=== PATIENT | female | born 1945 | race Caucasian/White ===

== ENCOUNTER → 2018-01-06 09:18 | Outpatient (CLI) | payer MEDICARE, SELFPAY ==
--- NOTE | 2018-01-06 09:21 | HPBI_ITS ---
MAMMOGRAPHY - BILATERAL SCREENING REASON FOR EXAM: Female, 72 years old. Routine annual screening examination. PERTINENT HISTORY: Non-contributory. TECHNIQUE: Digital bilateral breast sol (3D mammographic acquisition) in the CC and MLO projections. 2-D mediolateral oblique (MLO) and craniocaudad (CC) views of both breasts were obtained. CAD: Full Field Digital Mammography with Computer Added Detection was performed. COMPARISON: Comparison is made with prior study dated October 27, 2016 and September 24, 2015. FINDINGS: Breast Composition: There are scattered areas of fibroglandular density. There are no dominant masses or suspicious calcifications. Stable bilateral benign appearing axillary lymph nodes. No other significant abnormalities are identified. There has been no significant change since the prior study. HPBI/SCREENING MAMM (CAD), BILAT IMPRESSION: Stable bilateral screening mammogram. Yearly follow-up mammogram recommended. (A) ASSESSMENT CATEGORY: BIRADS Category 2: Benign. A letter regarding these results will be sent to the patient by the facility within 30 days. Approximately 10% of breast cancers are not detected by mammography. A normal mammogram should not delay biopsy of a clinically suspicious abnormality. [id number] Electronically Signed: Chuck Smyth MD at 13:31 EDT Tel [phone], Service support ,
== END ==
PROVIDERS: Family Provider Family Medicine; PCP Family Medicine; Visit Provider Obstetrics & Gynecology
DX: Z12.31 Encounter for screening mammogram for malignant neoplasm of breast (principal)
CPT/HCPCS: 77063; 77067

== ENCOUNTER → 2018-03-31 09:43 | Outpatient (CLI) | payer MEDICARE, SELFPAY ==
[2018-03-31 12:04] LABS: Absolute Lymphocyte Count 0.91 X10^3/ul (0.83-4.51); Absolute Neutrophil Count 5.5 X10^3/uL (2.0-7.7); Basophil# 0.01 X10^3/uL; Basophil% 0.1 % (0-1); Eosinophil# 0.01 X10^3/uL; Eosinophils% 0.1 % (0-5); Hemoglobin 13.4 g/dl (12.0-15.0); Lymphocyte # 0.91 X10^3/ul (4.0); Lymphocyte % 13.6 % (19-41); Mean Corp Hgb Conc 32.7 g/gl (32-36); Mean Corpuscular Hgb 29.2 pg (27.0-32.0); Mean Corpuscular Volume 89.3 fL (81-99); Mean Platelet Vol. 10.3 fl (6.2-12.0); Monocyte# 0.21 X10^3/uL; Monocyte% 3.1 % (0-10); Neutrophil # 5.54 X10^3/uL (2.7-7.7); Platelet Count 225 K/mm3 (150-450); RBC Distribution Width CV 13.4 % (11.6-14.6); RBC Distribution Width SD 43.4 fl (35.1-43.9); Red Blood Count 4.59 M/mm3 (4.2-5.4); White Blood Count 6.7 K/mm3 (4.4-11.0)
[2018-03-31 12:17] LABS: POSITIVE COUNT NO; POSITIVE DIFFERENTIAL NO; POSITIVE MORPHOLOGY NO
[2018-03-31 12:20] LABS: ALB/GLOB Ratio 1.2 RATIO (0.9-2.4); AST(SGOT) 15 U/L (15-37); Alanine Aminotransfer ALT/SGPT 40 U/L (13-56); Albumin, Serum 3.9 g/dL (3.2-5.0); Alkaline Phosphatase 75 U/L (45-117); Anion Gap 8 (5-15); BUN 15 mg/dL (7-18); BUN/Creat Ratio 21.5 RATIO (10-20); Calcium,Total 8.9 mg/dL (8.5-10.1); Chloride 107 mmol/L (98-107); Cholesterol 203 mg/dL (200); EST Glomerular Filtration Rate 87 mL/min (>60); Est Glom Filt Rate - Afr Amer 105 mL/min (>60); Globulin 3.3 g/dL (2.2-4.2); Glucose 120 mg/dL (74-106); High Density Lipoprotein 75 mg/dL; Potassium 4.1 mmol/L (3.5-5.1); Protein, Total 7.2 g/dL (6.4-8.2); Sodium Level 142 mmol/L (136-145); Triglycerides 130 mg/dL; Very Low Density Lipoprotein 26 mg/dL (5-40)
[2018-03-31 12:26] LABS: Microalbumin,Random Urine 11.8 mg/L (NO RANGE EST.); Microalbumin:Creatinine Ratio 8.5 mg/g CRE (<30 mg/g CRE)
== END ==
PROVIDERS: Family Provider Family Medicine; PCP Family Medicine; Visit Provider Family Medicine
DX: I10 Essential (primary) hypertension (principal); R60.0 Localized edema; E78.5 Hyperlipidemia, unspecified
CPT/HCPCS: 36415; 80053; 80061; 82043; 82570; 85025

== ENCOUNTER 2018-07-31 18:42 | Inpatient (IN) | payer MEDICARE, SELFPAY ==
[2018-07-31] VITALS (7 sets, daily range): BP systolic 118–204; BP diastolic 60–104; PULSE 65–71; RESP 16–27; TEMP 36.5–37.2; O2SAT 92–100; BMI 27.2; BMI 26.9; BMI 27.0
--- NOTE | 2018-07-31 19:11 | EKG12_ITS ---
Test Reason : REPEAT Blood Pressure : / mmHG Vent. Rate : 071 BPM Atrial Rate : 071 BPM P-R Int : 150 ms QRS Dur : 110 ms QT Int : 422 ms P-R-T Axes : 014 -11 118 degrees QTc Int : 458 ms Sinus rhythm with occasional Premature ventricular complexes Left ventricular hypertrophy with repolarization abnormality Abnormal ECG Confirmed by SHYNAN EVANS, RAFAEL ([id number]), photo editor KOFFI MO ([id number]) on 08/02/2018 3:28:13 PM Referred By: ANJEL Confirmed By:RAFAEL BOOTHE MD
--- NOTE | 2018-07-31 19:12 | CT_ITS ---
STUDY: CT ABDOMEN AND PELVIS WITHOUT CONTRAST REASON FOR EXAM: Female, 73 years old. Abdominal and pelvic pain. RADIATION DOSAGE (If Supplied By Facility): CTDIvol = ( 6.85 ) mGy, DLP = ( 318.31 ) mGycm TECHNIQUE: Transaxial images were obtained from the dome of the diaphragm to the symphysis pubis without oral contrast, and without intravenous contrast. Sagittal and coronal images were reconstructed. Individualized dose optimization techniques were used for this CT. COMPARISON: None. FINDINGS: The visualized lung bases are unremarkable. The visualized portions of the heart are within normal limits. Please note the lack of intravenous contrast limits evaluation of solid visceral organs. Normal liver. Normal gallbladder and extrahepatic biliary system. Normal spleen. Normal pancreas. Normal bilateral adrenal glands. Normal right kidney. Normal left kidney. There is a small hiatal hernia. There is a dilated loop of distal ileum associated with feculent material within the lumen. There is a diverticulum arising from the sigmoid colon. The appendix is visualized and appears normal. There is diffuse atherosclerotic calcification of the abdominal aorta, without a demonstrated aneurysm. Normal inferior vena cava. Normal retroperitoneum. Normal urinary bladder. Normal abdominal wall. There are diffuse degenerative changes of the visualized lumbar spine. There is fusion of the L4 and L5 vertebral bodies. CT/Abdomen/Pelvis without Cont IMPRESSION: Small bowel obstruction involving the distal ileum. Atherosclerosis. Small hiatal hernia. Electronically Signed: Renetta White MD at 20:08 EDT Tel , Service support ,
--- NOTE | 2018-07-31 19:18 | ED.RN ---
NO OLD EKGS IN MUSE
[2018-07-31] MEDS: proMETHazine 25 MG/ML Syringe 12.5 MG IV (19:29)
[2018-07-31] MEDS: 0.9% Normal Saline 1,000 ML 150 ML IV (19:29)
[2018-07-31 19:38] LABS: Absolute Lymphocyte Count 1.47 X10^3/ul (0.83-4.51); Basophil# 0.02 X10^3/uL; Basophil% 0.2 % (0-1); Eosinophil# 0.05 X10^3/uL; Eosinophils% 0.5 % (0-5); Hematocrit 44.5 % (37-47); Hemoglobin 15.3 g/dl (12.0-15.0); Lymphocyte # 1.47 X10^3/ul (4.0); Lymphocyte % 13.4 % (19-41); Mean Corp Hgb Conc 34.4 g/gl (32-36); Mean Corpuscular Hgb 30.5 pg (27.0-32.0); Mean Corpuscular Volume 88.8 fL (81-99); Mean Platelet Vol. 9.9 fl (6.2-12.0); Monocyte# 0.37 X10^3/uL; Monocyte% 3.4 % (0-10); Neutrophil # 9.03 X10^3/uL (2.7-7.7); Neutrophil % 82.3 % (47-70); POSITIVE COUNT NO; POSITIVE DIFFERENTIAL NO; POSITIVE MORPHOLOGY NO; Platelet Count 222 K/mm3 (150-450); RBC Distribution Width CV 12.6 % (11.6-14.6); RBC Distribution Width SD 39.9 fl (35.1-43.9); Red Blood Count 5.01 M/mm3 (4.2-5.4)
[2018-07-31 19:49] LABS: ALB/GLOB Ratio 1.2 RATIO (0.9-2.4); AST(SGOT) 20 U/L (15-37); Alanine Aminotransfer ALT/SGPT 44 U/L (13-56); Albumin, Serum 4.2 g/dL (3.2-5.0); Alkaline Phosphatase 83 U/L (45-117); Anion Gap 11 (5-15); BUN 15 mg/dL (7-18); BUN/Creat Ratio 15.6 RATIO (10-20); Calcium,Total 9.6 mg/dL (8.5-10.1); Chloride 105 mmol/L (98-107); Creatinine, Serum 0.96 mg/dL (0.55-1.02); EST Glomerular Filtration Rate 60 mL/min (>60); Est Glom Filt Rate - Afr Amer 73 mL/min (>60); Estimated Creatinine Clearance 48.95 ml/min; Globulin 3.4 g/dL (2.2-4.2); Glucose 136 mg/dL (74-106); Lipase 124 U/L (73-393); Protein, Total 7.6 g/dL (6.4-8.2); Sodium Level 138 mmol/L (136-145)
--- NOTE | 2018-07-31 19:50 | EKG12_ITS ---
Test Reason : NAUSEA Blood Pressure : / mmHG Vent. Rate : 062 BPM Atrial Rate : 062 BPM P-R Int : 148 ms QRS Dur : 100 ms QT Int : 440 ms P-R-T Axes : 019 000 125 degrees QTc Int : 446 ms Normal sinus rhythm Left ventricular hypertrophy with repolarization abnormality Consider right ventricular involvement in acute inferior infarct Abnormal ECG Confirmed by SHYANN EVANS, RAFAEL ([id number]), newspaper editor managing KOFFI MO ([id number]) on 08/02/2018 3:28:43 PM Referred By: ANJEL Confirmed By:RAFAEL BOOTHE MD
[2018-07-31 20:02] LABS: Lactic Acid 4.3 mmol/L (0.4-2.0)
--- NOTE | 2018-07-31 20:27 | ED.VISSUMM ---
- ER Visit Summary Date of Service: 07/31/18 Chief Complaint: [Abdominal pain, vomiting] History of Present Illness: The patient is a 73 F [presents the emergency department complaint of not feeling well since around 4 PM today. Patient states that she started having nondescript central abdominal pain initially and felt like she would feel better if she lay down with a heating pad. Patient started to have dry heaves. Patient's not had a fever. She denies urinary symptoms. Patient is never had pain like this before. She denies any diarrhea although she has had 3 bowel movements today.] Physical Examination: [HEENT-PERRLA, EOMI. Cranial nerves II through XII grossly intact. TMs clear. Mucous membranes moist. No adenopathy. Cardiovascular-regular rate and rhythm without murmur or ectopy Lungs-clear to auscultation, chest wall stable without crepitus or subcu emphysema Abdomen-normoactive bowel sounds, soft. Patient does have some mild suprapubic and periumbilical pain on palpation. There is no rebound, rigidity, or perineal signs. Extremities-intact ?4, normal range of motion, normal pulses, atraumatic] Test Results: [CBC with differential obtained showed a white count 11.0, hemoglobin 15, hematocrit 14.5, platelets 222. Chemistries unremarkable. All LFTs were normal. Lipase was normal. Troponin was less than 0.015. Lactate was elevated 4.3. CT scan of the abdomen pelvis without contrast showed a small bowel obstruction at the distal ileum.] Emergency Department Course and Treatment: [Patient initially given a liter normal same fluid bolus followed by second liter normal saline fluid bolus. Patient will have an NG tube placed. I discussed case with general surgeon on-call Dr. Janneth Mancera who asked that we admit patient to medicine with her to consult.] Treatment Plan: [Admit] Disposition: [Admit] Impression: [Small bowel obstruction] This note was generated with [employer] dictation software. It may contain incorrect words, spelling, and punctuation that were not noted in review of the chart prior to signing ED Disposition - Plan for ED Patient: Chief Complaint: Nausea/Vomiting Referrals: Bertin Sanchez DO [Primary Care Provider] -
--- NOTE | 2018-07-31 20:32 | ED.DCSUM_ITS ---
- ER Visit Summary Date of Service: 07/31/18 Chief Complaint: [Abdominal pain, vomiting] History of Present Illness: The patient is a 73 F [presents the emergency department complaint of not feeling well since around 4 PM today. Patient states that she started having nondescript central abdominal pain initially and felt like she would feel better if she lay down with a heating pad. Patient started to have dry heaves. Patient's not had a fever. She denies urinary symptoms. Patient is never had pain like this before. She denies any diarrhea although she has had 3 bowel movements today.] Physical Examination: [HEENT-PERRLA, EOMI. Cranial nerves II through XII grossly intact. TMs clear. Mucous membranes moist. No adenopathy. Cardiovascular-regular rate and rhythm without murmur or ectopy Lungs-clear to auscultation, chest wall stable without crepitus or subcu emphys edy Abdomen-normoactive bowel sounds, soft. Patient does have some mild suprapubic and periumbilical pain on palpation. There is no rebound, rigidity, or perineal signs. Extremities-intact ?4, normal range of motion, normal pulses, atraumatic] Test Results: [CBC with differential obtained showed a white count 11.0, hemoglobin 15, hematocrit 14.5, platelets 222. Chemistries unremarkable. All LFTs were normal. Lipase was normal. Troponin was less than 0.015. Lactate was elevated 4.3. CT scan of the abdomen pelvis without contrast showed a small bowel obstruction at the distal ileum.] Emergency Department Course and Treatment: [Patient initially given a liter normal same fluid bolus followed by second liter normal saline fluid bolus. Patient will have an NG tube placed. I discussed case with general surgeon on- call Dr. Janneth Mancera who asked that we admit patient to medicine with her to consult.] Treatment Plan: [Admit] Disposition: [Admit] Impression: [Small bowel obstruction] This note was generated with [employer] dictation software. It may contain incorrect words, spelling, and punctuation that were not noted in review of the chart prior to signing ED Disposition - Plan for ED Patient: Chief Complaint: Nausea/Vomiting Referrals: Bertin Sanchez DO [Primary Care Provider] -
[2018-07-31 20:39] LABS: Mucous, Urine 0 SEEN /hpf (<or=2+); Squamous Epithelial Cells - UA 0 SEEN /hpf (5-10)
--- NOTE | 2018-07-31 20:39 | HP.PCM_ITS ---
History of Present Illness The patient is a 73 year old F [] Past Medical History Allergies Penicillins Allergy (Verified 07/31/18 18:43) Rash Home Medications: Ambulatory Orders Medication Instructions Recorded Lovastatin [Mevacor] 40 mg PO DAILY 05/12/14 [place]-3 Fatty Acids [Fish Oil] 300 mg PO DAILY 05/12/14 Omeprazole [Prilosec] 40 mg PO DAILY 05/12/14 Ubidecarenone [Co Q-10] 100 mg PO 05/12/14 Vitamin E 400 units PO DAILY 05/12/14 Smoking Status: Never smoker - Physical Exam Vital Signs Temp Pulse Resp BP Pulse Ox 97.7 F L 65 19 H 118/104 H 95 07/31/18 18:43 07/31/18 19:52 07/31/18 19:52 07/31/18 19:52 07/31/18 19:52 Oxygen Delivery Method Room Air Weight: 135 lb Body Mass Index (BMI) 27.2 Laboratory Tests Past 24 Hrs 07/31/18 07/31/18 07/31/18 18:55 18:55 18:55 WBC 11.0 RBC 5.01 Hgb 15.3 H Hct 44.5 MCV 88.8 MCH 30.5 MCHC 34.4 RDW 12.6 RDW Differential 39.9 Plt Count 222 MPV 9.9 Immature Gran % (Auto) 0.200 Neut % (Auto) 82.3 H Lymph % (Auto) 13.4 L [place] % (Auto) 3.4 Eos % (Auto) 0.5 Baso % (Auto) 0.2 Absolute Neuts (auto) 9.0 H Absolute Lymphs (auto) 1.47 Total Counted Not Reportable Sodium 138 Potassium 4.0 Chloride 105 Carbon Dioxide 22.0 Anion Gap 11 BUN 15 Creatinine 0.96 Estim Creat Clear Calc 48.95 Est GFR (MDRD) Af Amer 73 Est GFR (MDRD) Non-Af 60 BUN/Creatinine Ratio 15.6 Glucose 136 H Lactic Acid 4.3 H* Calcium 9.6 Total Bilirubin 0.70 AST 20 ALT 44 Alkaline Phosphatase 83 Troponin I < 0.015 Total Protein 7.6 Albumin 4.2 Globulin 3.4 Albumin/Globulin Ratio 1.2 Lipase 124 Urine Color Urine Clarity Urine pH Ur Specific [place] Urine Protein Urine Glucose (UA) Urine Ketones Urine Occult Blood Urine Nitrite Urine Bilirubin Urine Urobilinogen Ur Leukocyte Esterase Urine RBC Urine WBC Ur Squamous Epith Cells Urine Bacteria Urine Mucus 07/31/18 20:27 WBC RBC Hgb Hct MCV MCH MCHC RDW RDW Differential Plt Count MPV Immature Gran % (Auto) Neut % (Auto) Lymph % (Auto) [place] % (Auto) Eos % (Auto) Baso % (Auto) Absolute Neuts (auto) Absolute Lymphs (auto) Total Counted Sodium Potassium Chloride Carbon Dioxide Anion Gap BUN Creatinine Estim Creat Clear Calc Est GFR (MDRD) Af Amer Est GFR (MDRD) Non-Af BUN/Creatinine Ratio Glucose Lactic Acid Calcium Total Bilirubin AST ALT Alkaline Phosphatase Troponin I Total Protein Albumin Globulin Albumin/Globulin Ratio Lipase Urine Color Pending Urine Clarity Pending Urine pH Pending Ur Specific [place] Pending Urine Protein Pending Urine Glucose (UA) Pending Urine Ketones Pending Urine Occult Blood Pending Urine Nitrite Pending Urine Bilirubin Pending Urine Urobilinogen Pending Ur Leukocyte Esterase Pending Urine RBC Pending Urine WBC Pending Ur Squamous Epith Cells Pending Urine Bacteria Pending Urine Mucus Pending
[2018-07-31 20:40] LABS: Color, Urine Yellow (Yellow); Glucose, Dipstick Normal (Normal); Ketone-Dipstick 50 mg/dl (Negative); Leukocyte Esterase-Dipstick 500 /ul (Negative); Nitrite-Dipstick Positive (Negative); Occult Blood-Urine 25 /ul (Negative); Protein-Dipstick 30 mg/dl (Negative); Specific Gravity, Urine 1.015 (1.002-1.030); Urine Bilirubin Dipstick Negative (Negative); Urine Clarity Cloudy (Clear); Urine Urobilinogen Normal (Normal)
[2018-07-31 20:46] LABS: Bacteria 4+ /hpf (None Seen)
[2018-07-31 20:47] LABS: Red Blood Cells-Urine 0-5 SEEN /hpf (0-5); White Blood Cells >100 SEEN /hpf (0-5)
--- NOTE | 2018-07-31 20:56 | PCM.CONS.GEN ---
Problem List (1) Abdominal cramping Status: Acute (2) Nausea Status: Acute Reason for Consult Date of Consultation: 07/31/18 Reason for Consultation: blood pressure management History of Present Illness: The patient is a 73 year old F with past medical history of hypertension and hyperlipidemia. She was admitted through the ED on 07/31/2018 with complaint of abdominal cramping and nausea started earlier today. Symptoms progressively worsened and was only relieved mildly by a heat patch that she applied to her abdomen. She had a bowel movement prior to symptoms starting, but has not a bowel movement or passed gas since. She came into the ED and CT scan showed small bowel obstruction. She was admitted by general surgery for management for small bowel obstruction hospitalist service was consulted for medical management of hypertension. [] Past Medical History Allergies Penicillins Allergy (Verified 07/31/18 18:43) Rash Home Medications: Ambulatory Orders Medication Instructions Recorded Lovastatin [Mevacor] 40 mg PO DAILY 05/12/14 [place]-3 Fatty Acids [Fish Oil] 300 mg PO DAILY 05/12/14 Omeprazole [Prilosec] 40 mg PO DAILY 05/12/14 Ubidecarenone [Co Q-10] 100 mg PO 05/12/14 Vitamin E 400 units PO DAILY 05/12/14 Surgical History: - - INOCENTE and BSO Psychiatric History: No pertinent psych hx Lives: With Family Smoking Status: Never smoker Tobacco Use: Non-smoker Alcohol: Occasional Drugs: None - *Family History Paternal History Items: Cancer Maternal History Items: No pertinent history Review of Systems Constitutional: Denies: Chills, Fever, Malaise, Weakness, Weight Change HEENT: Denies: Head Aches, Sinus Congestion, Sinus Drainage Cardiovascular: Denies: Chest Pain, Edema, Heaviness, Light Headedness, Palpitations Respiratory: Denies: Cough, Shortness of breath at rest, Sputum production Gastrointestinal: Reports: Abdominal Pain, Nausea. Denies: Constipation, Diarrhea, Dyspepsia, Vomiting Genitourinary: Denies: Dysuria Musculoskeletal: Denies: Joint Pain, Joint Tenderness Skin: Denies: Rash, Wounds Neurological: Denies: Numbness, Tingling, Focal weakness Psychiatric: Denies: Anxiety, Depression, Homicidal Ideations, Suicidal Ideations Hematologic/ Lymphatic: Denies: Easy Bruising, Easy Bleeding Patient Problems: Active and Suspected Problems Abdominal cramping (Acute) Nausea (Acute) - Physical Exam General: Alert, Oriented x3, Cooperative, No apparent distress HEENT: Atraumatic, PERRLA, EOMI, Normocephalic Oral: Moist Mucosa Neck: Supple, No JVD, Negative Carotid Bruits Lungs: Clear to auscultation, Normal air movement, No rhonchi, No wheeze, No rales Cardiovascular: Regular rate, Regular Rhythm, Normal S1, Normal S2, No murmurs Abdomen: Bowel Sounds Present, Soft, Non Tender, Non-Distended, No Hepato-splenomegaly Extremities: No clubbing, No cyanosis, No edema, Capillary Refill Less than 3 Seconds Skin: No rashes, No breakdown Musculoskeletal: No Tenderness to Palpation of Joints or Extremities Neurological: Cranial nerves II-XII grossly intact, Neuro grossly intact, Motor Exam 5/5 strength throughout Psych/Mental Status: Normal Affect, Appropriate, Alert and oriented to time, place, person, mood and affect Vital Signs Temp Pulse Resp BP Pulse Ox 97.7 F L 65 19 H 118/104 H 95 07/31/18 18:43 07/31/18 19:52 07/31/18 19:52 07/31/18 19:52 07/31/18 19:52 Oxygen Delivery Method Room Air Weight: 135 lb Body Mass Index (BMI) 27.2 Laboratory Tests Past 24 Hrs 07/31/18 07/31/18 07/31/18 18:55 18:55 18:55 WBC 11.0 RBC 5.01 Hgb 15.3 H Hct 44.5 MCV 88.8 MCH 30.5 MCHC 34.4 RDW 12.6 RDW Differential 39.9 Plt Count 222 MPV 9.9 Immature Gran % (Auto) 0.200 Neut % (Auto) 82.3 H Lymph % (Auto) 13.4 L [place] % (Auto) 3.4 Eos % (Auto) 0.5 Baso % (Auto) 0.2 Absolute Neuts (auto) 9.0 H Absolute Lymphs (auto) 1.47 Total Counted Not Reportable Sodium 138 Potassium 4.0 Chloride 105 Carbon Dioxide 22.0 Anion Gap 11 BUN 15 Creatinine 0.96 Estim Creat Clear Calc 48.95 Est GFR (MDRD) Af Amer 73 Est GFR (MDRD) Non-Af 60 BUN/Creatinine Ratio 15.6 Glucose 136 H Lactic Acid 4.3 H* Calcium 9.6 Total Bilirubin 0.70 AST 20 ALT 44 Alkaline Phosphatase 83 Troponin I < 0.015 Total Protein 7.6 Albumin 4.2 Globulin 3.4 Albumin/Globulin Ratio 1.2 Lipase 124 Urine Color Urine Clarity Urine pH Ur Specific [place] Urine Protein Urine Glucose (UA) Urine Ketones Urine Occult Blood Urine Nitrite Urine Bilirubin Urine Urobilinogen Ur Leukocyte Esterase Urine RBC Urine WBC Ur Squamous Epith Cells Urine Bacteria Urine Mucus 07/31/18 20:27 WBC RBC Hgb Hct MCV MCH MCHC RDW RDW Differential Plt Count MPV Immature Gran % (Auto) Neut % (Auto) Lymph % (Auto) [place] % (Auto) Eos % (Auto) Baso % (Auto) Absolute Neuts (auto) Absolute Lymphs (auto) Total Counted Sodium Potassium Chloride Carbon Dioxide Anion Gap BUN Creatinine Estim Creat Clear Calc Est GFR (MDRD) Af Amer Est GFR (MDRD) Non-Af BUN/Creatinine Ratio Glucose Lactic Acid Calcium Total Bilirubin AST ALT Alkaline Phosphatase Troponin I Total Protein Albumin Globulin Albumin/Globulin Ratio Lipase Urine Color Yellow Urine Clarity Cloudy Urine pH 8.0 Ur Specific [place] 1.015 Urine Protein 30 H Urine Glucose (UA) Normal Urine Ketones 50 H Urine Occult Blood 25 H Urine Nitrite Positive H Urine Bilirubin Negative Urine Urobilinogen Normal Ur Leukocyte Esterase 500 H Urine RBC 0-5 SEEN Urine WBC >100 SEEN Ur Squamous Epith Cells 0 SEEN Urine Bacteria 4+ Urine Mucus 0 SEEN Diagnostic Data Abdomen/Pelvis CT 07/31/18 19:12 IMPRESSION: Small bowel obstruction involving the distal ileum. Atherosclerosis. Small hiatal hernia. Electronically Signed: Renetta White MD at 20:08 EDT Tel , Service support , Assessment/Plan All Active Problems Abdominal cramping (Acute) Nausea (Acute) 73-year-old female presenting with 1 day history of abdominal cramping and nausea 1. Small bowel obstruction CT abeomen showed terminal ileum obstruction has not passed gas or had a bowel movement since this afternoon management as per general surgery maintain NPO, give IVF, and pass NG tube 2. Lactic acidosis, likely due to small bowel obstruction lactic acid elevated at 4.3 will repeat after IVF administration 3. Hypertension: not on any meds. BP has remained elevated, in the 150s-180s systolic. start amlodipine 10mg daily. IV hydralazine 10mg q6prn for BP >160/90 4. Asymptomatic bacteriuria has no urinary symptoms; UA positive for UTI, with 4+ bacteria however, patient is asymptomatic, so will defer treatment. urine culture ordered 5. Hyperlipidemia: on lovastatin 6. GERD: on prilosec DVT prophylaxis: heparin GI prophylaxis: PPI Code status: full code Code Visit Inpatient E&M: 18858 Subs Hosp L3
--- NOTE | 2018-07-31 21:01 | CON.PCM_ITS ---
Problem List (1) Abdominal cramping Status: Acute (2) Nausea Status: Acute Reason for Consult Date of Consultation: 07/31/18 Reason for Consultation: blood pressure management History of Present Illness: The patient is a 73 year old F with past medical history of hypertension and hyperlipidemia. She was admitted through the ED on 07/31/2018 with complaint of abdominal cramping and nausea started earlier today. Symptoms progressively worsened and was only relieved mildly by a heat patch that she applied to her abdomen. She had a bowel movement prior to symptoms starting, but has not a bowel movement or passed gas since. She came into the ED and CT scan showed small bowel obstruction. She was admitted by general surgery for management for small bowel obstruction hospitalist service was consulted for medical management of hypertension. [] Past Medical History Allergies Penicillins Allergy (Verified 07/31/18 18:43) Rash Home Medications: Ambulatory Orders Medication Instructions Recorded Lovastatin [Mevacor] 40 mg PO DAILY 05/12/14 [place]-3 Fatty Acids [Fish Oil] 300 mg PO DAILY 05/12/14 Omeprazole [Prilosec] 40 mg PO DAILY 05/12/14 Ubidecarenone [Co Q-10] 100 mg PO 05/12/14 Vitamin E 400 units PO DAILY 05/12/14 Surgical History: - - INOCENTE and BSO Psychiatric History: No pertinent psych hx Lives: With Family Smoking Status: Never smoker Tobacco Use: Non-smoker Alcohol: Occasional Drugs: None - *Family History Paternal History Items: Cancer Maternal History Items: No pertinent history Review of Systems Constitutional: Denies: Chills, Fever, Malaise, Weakness, Weight Change HEENT: Denies: Head Aches, Sinus Congestion, Sinus Drainage Cardiovascular: Denies: Chest Pain, Edema, Heaviness, Light Headedness, Pa lpitations Respiratory: Denies: Cough, Shortness of breath at rest, Sputum production Gastrointestinal: Reports: Abdominal Pain, Nausea. Denies: Constipation, Diarrhea, Dyspepsia, Vomiting Genitourinary: Denies: Dysuria Musculoskeletal: Denies: Joint Pain, Joint Tenderness Skin: Denies: Rash, Wounds Neurological: Denies: Numbness, Tingling, Focal weakness Psychiatric: Denies: Anxiety, Depression, Homicidal Ideations, Suicidal Ideations Hematologic/ Lymphatic: Denies: Easy Bruising, Easy Bleeding Patient Problems: Active and Suspected Problems Abdominal cramping (Acute) Nausea (Acute) - Physical Exam General: Alert, Oriented x3, Cooperative, No apparent distress HEENT: Atraumatic, PERRLA, EOMI, Normocephalic Oral: Moist Mucosa Neck: Supple, No JVD, Negative Carotid Bruits Lungs: Clear to auscultation, Normal air movement, No rhonchi, No wheeze, No rales Cardiovascular: Regular rate, Regular Rhythm, Normal S1, Normal S2, No murmurs Abdomen: Bowel Sounds Present, Soft, Non Tender, Non-Distended, No Hepato- splenomegaly Extremities: No clubbing, No cyanosis, No edema, Capillary Refill Less than 3 Seconds Skin: No rashes, No breakdown Musculoskeletal: No Tenderness to Palpation of Joints or Extremities Neurological: Cranial nerves II-XII grossly intact, Neuro grossly intact, Motor Exam 5/5 strength throughout Psych/Mental Status: Normal Affect, Appropriate, Alert and oriented to time, place, person, mood and affect Vital Signs Temp Pulse Resp BP Pulse Ox 97.7 F L 65 19 H 118/104 H 95 07/31/18 18:43 07/31/18 19:52 07/31/18 19:52 07/31/18 19:52 07/31/18 19:52 Oxygen Delivery Method Room Air Weight: 135 lb Body Mass Index (BMI) 27.2 Laboratory Tests Past 24 Hrs 07/31/18 07/31/18 07/31/18 18:55 18:55 18:55 WBC 11.0 RBC 5.01 Hgb 15.3 H Hct 44.5 MCV 88.8 MCH 30.5 MCHC 34.4 RDW 12.6 RDW Differential 39.9 Plt Count 222 MPV 9.9 Immature Gran % (Auto) 0.200 Neut % (Auto) 82.3 H Lymph % (Auto) 13.4 L Lyon % (Auto) 3.4 Eos % (Auto) 0.5 Baso % (Auto) 0.2 Absolute Neuts (auto) 9.0 H Absolute Lymphs (auto) 1.47 Total Counted Not Reportable Sodium 138 Potassium 4.0 Chloride 105 Carbon Dioxide 22.0 Anion Gap 11 BUN 15 Creatinine 0.96 Estim Creat Clear Calc 48.95 Est GFR (MDRD) Af Amer 73 Est GFR (MDRD) Non-Af 60 BUN/Creatinine Ratio 15.6 Glucose 136 H Lactic Acid 4.3 H* Calcium 9.6 Total Bilirubin 0.70 AST 20 ALT 44 Alkaline Phosphatase 83 Troponin I < 0.015 Total Protein 7.6 Albumin 4.2 Globulin 3.4 Albumin/Globulin Ratio 1.2 Lipase 124 Urine Color Urine Clarity Urine pH Ur Specific [place] Urine Protein Urine Glucose (UA) Urine Ketones Urine Occult Blood Urine Nitrite Urine Bilirubin Urine Urobilinogen Ur Leukocyte Esterase Urine RBC Urine WBC Ur Squamous Epith Cells Urine Bacteria Urine Mucus 07/31/18 20:27 WBC RBC Hgb Hct MCV MCH MCHC RDW RDW Differential Plt Count MPV Immature Gran % (Auto) Neut % (Auto) Lymph % (Auto) [place] % (Auto) Eos % (Auto) Baso % (Auto) Absolute Neuts (auto) Absolute Lymphs (auto) Total Counted Sodium Potassium Chloride Carbon Dioxide Anion Gap BUN Creatinine Estim Creat Clear Calc Est GFR (MDRD) Af Amer Est GFR (MDRD) Non-Af BUN/Creatinine Ratio Glucose Lactic Acid Calcium Total Bilirubin AST ALT Alkaline Phosphatase Troponin I Total Protein Albumin Globulin Albumin/Globulin Ratio Lipase Urine Color Yellow Urine Clarity Cloudy Urine pH 8.0 Ur Specific [place] 1.015 Urine Protein 30 H Urine Glucose (UA) Normal Urine Ketones 50 H Urine Occult Blood 25 H Urine Nitrite Positive H Urine Bilirubin Negative Urine Urobilinogen Normal Ur Leukocyte Esterase 500 H Urine RBC 0-5 SEEN Urine WBC >100 SEEN Ur Squamous Epith Cells 0 SEEN Urine Bacteria 4+ Urine Mucus 0 SEEN Diagnostic Data Abdomen/Pelvis CT 07/31/18 19:12 IMPRESSION: Small bowel obstruction involving the distal ileum. Atherosclerosis. Small hiatal hernia. Electronically Signed: Renetta White MD at 20:08 EDT Tel , Service support , Assessment/Plan All Active Problems Abdominal cramping (Acute) Nausea (Acute) 73-year-old female presenting with 1 day history of abdominal cramping and nausea 1. Small bowel obstruction * CT abeomen showed terminal ileum obstruction * has not passed gas or had a bowel movement since this afternoon * management as per general surgery * maintain NPO, give IVF, and pass NG tube * 2. Lactic acidosis, likely due to small bowel obstruction * lactic acid elevated at 4.3 * will repeat after IVF administration * 3. Hypertension: * not on any meds. BP has remained elevated, in the 150s-180s systolic. * start amlodipine 10mg daily. * IV hydralazine 10mg q6prn for BP >160/90 4. Asymptomatic bacteriuria * has no urinary symptoms; UA positive for UTI, with 4+ bacteria * however, patient is asymptomatic, so will defer treatment. * urine culture ordered * 5. Hyperlipidemia: on lovastatin 6. GERD: on prilosec DVT prophylaxis: heparin GI prophylaxis: PPI Code status: full code Code Visit Inpatient E&M: 42968 Subs Hosp L3
--- NOTE | 2018-07-31 21:20 | PCM.HP.STD ---
History of Present Illness Date of Admission: 07/31/18 The patient is a 73 year old F presented to the ER due to dry heaves and nausea. Patient states that around 1130 today she started to feel kind of tired she did have a bowel movement she states was normal and nonbloody. At around 2 PM started to have dry heaves and nausea denies any actual vomiting and she did also have diaphoresis with these. And by 4 PM she states it has gotten worse as far as a dry heaves and she asked her son to go get her some Pepto-Bismol she states that during this time she did have some abdominal pain in the lower abdomen and she just did not feel good. Patient states she has no pain currently and has not received any pain meds in the ER however she does states she has a high pain tolerance. Currently she has no nausea or vomiting but she did receive antiemetic drugs. She denies ever having a history of a bowel obstruction in the past. Patient surgeries include a hysterectomy, BSO, tubal, cystocele and rectocele in 2005. 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 Denies: Vomiting Genitourinary: Denies: Dysuria Skin: Denies: Rash Neurological: Denies: Slurred speech Psychiatric: Denies: Anxiety, Depression Hematologic/ Lymphatic: Denies: Easy Bruising, Easy Bleeding VTE Information - Inpt Only VTE Present on Admission: Yes VTE Mechan Device Prophylaxis: SCD's VTE Pharm Prophylaxis ordered?: No Reason prophylaxis not ordered:: Medical Contraindication - Hold and see how she does overnight if it is stable we will continue conservative management will start Lovenox in the morning Patient Problems: Active and Suspected Problems Abdominal cramping (Acute) Nausea (Acute) - Physical Exam General: Alert, Oriented x3, Cooperative, No apparent distress HEENT: Atraumatic Lungs: Normal air movement Cardiovascular: Regular rate, Regular Rhythm Abdomen: Soft, Non-Distended, Tender - Mild tenderness palpation bilateral lower quadrant, no guarding rebound Extremities: No clubbing, No cyanosis, No edema Skin: No rashes Neurological: Cranial nerves II-XII grossly intact Psych/Mental Status: Normal Affect Vital Signs Temp Pulse Resp BP Pulse Ox 97.7 F L 65 19 H 118/104 H 95 07/31/18 18:43 07/31/18 19:52 07/31/18 19:52 07/31/18 19:52 07/31/18 19:52 Oxygen Delivery Method Room Air Weight: 135 lb Body Mass Index (BMI) 27.2 Laboratory Tests Past 24 Hrs 07/31/18 07/31/18 07/31/18 18:55 18:55 18:55 WBC 11.0 RBC 5.01 Hgb 15.3 H Hct 44.5 MCV 88.8 MCH 30.5 MCHC 34.4 RDW 12.6 RDW Differential 39.9 Plt Count 222 MPV 9.9 Immature Gran % (Auto) 0.200 Neut % (Auto) 82.3 H Lymph % (Auto) 13.4 L [place] % (Auto) 3.4 Eos % (Auto) 0.5 Baso % (Auto) 0.2 Absolute Neuts (auto) 9.0 H Absolute Lymphs (auto) 1.47 Total Counted Not Reportable Sodium 138 Potassium 4.0 Chloride 105 Carbon Dioxide 22.0 Anion Gap 11 BUN 15 Creatinine 0.96 Estim Creat Clear Calc 48.95 Est GFR (MDRD) Af Amer 73 Est GFR (MDRD) Non-Af 60 BUN/Creatinine Ratio 15.6 Glucose 136 H Lactic Acid 4.3 H* Calcium 9.6 Total Bilirubin 0.70 AST 20 ALT 44 Alkaline Phosphatase 83 Troponin I < 0.015 Total Protein 7.6 Albumin 4.2 Globulin 3.4 Albumin/Globulin Ratio 1.2 Lipase 124 Urine Color Urine Clarity Urine pH Ur Specific [place] Urine Protein Urine Glucose (UA) Urine Ketones Urine Occult Blood Urine Nitrite Urine Bilirubin Urine Urobilinogen Ur Leukocyte Esterase Urine RBC Urine WBC Ur Squamous Epith Cells Urine Bacteria Urine Mucus 07/31/18 20:27 WBC RBC Hgb Hct MCV MCH MCHC RDW RDW Differential Plt Count MPV Immature Gran % (Auto) Neut % (Auto) Lymph % (Auto) [place] % (Auto) Eos % (Auto) Baso % (Auto) Absolute Neuts (auto) Absolute Lymphs (auto) Total Counted Sodium Potassium Chloride Carbon Dioxide Anion Gap BUN Creatinine Estim Creat Clear Calc Est GFR (MDRD) Af Amer Est GFR (MDRD) Non-Af BUN/Creatinine Ratio Glucose Lactic Acid Calcium Total Bilirubin AST ALT Alkaline Phosphatase Troponin I Total Protein Albumin Globulin Albumin/Globulin Ratio Lipase Urine Color Yellow Urine Clarity Cloudy Urine pH 8.0 Ur Specific [place] 1.015 Urine Protein 30 H Urine Glucose (UA) Normal Urine Ketones 50 H Urine Occult Blood 25 H Urine Nitrite Positive H Urine Bilirubin Negative Urine Urobilinogen Normal Ur Leukocyte Esterase 500 H Urine RBC 0-5 SEEN Urine WBC >100 SEEN Ur Squamous Epith Cells 0 SEEN Urine Bacteria 4+ Urine Mucus 0 SEEN Assessment/Plan All Active Problems Abdominal cramping (Acute) Nausea (Acute) 73-year-old female with a possible small bowel obstruction, nausea/dry heaves, elevated lactic 1. We will keep patient n.p.o./NG to low intermittent suction and IV fluids. Will check NG placement with KUB. 2. Elevated lactic we will recheck patient's lactic after receiving 2 L of fluids. Patient states she has not drink much today even though she did not have actual vomiting only dry heaves. 3. Will hold the Lovenox to see how she does overnight. 4. We will continue Protonix. 5. Hypertension per Dr. Keith. Janneth Mancera M.D. Pager: [phone] [facility] [address] [place] [address], Outpatient Pavilion, [address] [place] [address] Office: [phone]
--- NOTE | 2018-07-31 21:24 | HP.PCM_ITS ---
History of Present Illness Date of Admission: 07/31/18 The patient is a 73 year old F presented to the ER due to dry heaves and nausea. Patient states that around 1130 today she started to feel kind of tired she did have a bowel movement she states was normal and nonbloody. At around 2 PM started to have dry heaves and nausea denies any actual vomiting and she did also have diaphoresis with these. And by 4 PM she states it has gotten worse as far as a dry heaves and she asked her son to go get her some Pepto-Bismol she states that during this time she did have some abdominal pain in the lower abdomen and she just did not feel good. Patient states she has no pain currently and has not received any pain meds in the ER however she does states she has a high pain tolerance. Currently she has no nausea or vomiting but she did receive antiemetic drugs. She denies ever having a history of a bowel obstruction in the past. Patient surgeries include a hysterectomy, BSO, tubal, cystocele and rectocele in 2005. Past Medical History Allergies Penicillins Allergy (Verified 07/31/18 18:43) Rash Home Medications: Ambulatory Orders Medication Instructions Recorded Lovastatin [Mevacor] 40 mg PO DAILY 05/12/14 [place]-3 Fatty Acids [Fish Oil] 300 mg PO DAILY 05/12/14 Omeprazole [Prilosec] 40 mg PO DAILY 05/12/14 Ubidecarenone [Co Q-10] 100 mg PO 05/12/14 Vitamin E 400 units PO DAILY 05/12/14 Surgical History: - - INOCENTE and BSO, right cataracts, cystocele and rectocele repair in 2005 Psychiatric History: No pertinent psych hx [employer]ING History: No pertinent [employer] history Lives: With Family Smoking Status: Never smoker Tobacco Use: Non-smoker Alcohol: Occasional Drugs: None - *Family History Paternal History Items: Cancer Maternal History Items: No pertinent history Review of Systems Constitutional: Denies: Fever Eyes: Denies: Blurred vision HEENT: Denies: Difficulty Swallowing Cardiovascular: Denies: Chest Pain Respiratory: Denies: Shortness of Breath Gastrointestinal: Reports: Abdominal Pain, Nausea. Denies: Vomiting Genitourinary: Denies: Dysuria Skin: Denies: Rash Neurological: Denies: Slurred speech Psychiatric: Denies: Anxiety, Depression Hematologic/ Lymphatic: Denies: Easy Bruising, Easy Bleeding VTE Information - Inpt Only VTE Present on Admission: Yes VTE Mechan Device Prophylaxis: SCD's VTE Pharm Prophylaxis ordered?: No Reason prophylaxis not ordered:: Medical Contraindication - Hold and see how she does overnight if it is stable we will continue conservative management will start Lovenox in the morning Patient Problems: Active and Suspected Problems Abdominal cramping (Acute) Nausea (Acute) - Physical Exam General: Alert, Oriented x3, Cooperative, No apparent distress HEENT: Atraumatic Lungs: Normal air movement Cardiovascular: Regular rate, Regular Rhythm Abdomen: Soft, Non-Distended, Tender - Mild tenderness palpation bilateral lower quadrant, no guarding rebound Extremities: No clubbing, No cyanosis, No edema Skin: No rashes Neurological: Cranial nerves II-XII grossly intact Psych/Mental Status: Normal Affect Vital Signs Temp Pulse Resp BP Pulse Ox 97.7 F L 65 19 H 118/104 H 95 07/31/18 18:43 07/31/18 19:52 07/31/18 19:52 07/31/18 19:52 07/31/18 19:52 Oxygen Delivery Method Room Air Weight: 135 lb Body Mass Index (BMI) 27.2 Laboratory Tests Past 24 Hrs 07/31/18 07/31/18 07/31/18 18:55 18:55 18:55 WBC 11.0 RBC 5.01 Hgb 15.3 H Hct 44.5 MCV 88.8 MCH 30.5 MCHC 34.4 RDW 12.6 RDW Differential 39.9 Plt Count 222 MPV 9.9 Immature Gran % (Auto) 0.200 Neut % (Auto) 82.3 H Lymph % (Auto) 13.4 L [place] % (Auto) 3.4 Eos % (Auto) 0.5 Baso % (Auto) 0.2 Absolute Neuts (auto) 9.0 H Absolute Lymphs (auto) 1.47 Total Counted Not Reportable Sodium 138 Potassium 4.0 Chloride 105 Carbon Dioxide 22.0 Anion Gap 11 BUN 15 Creatinine 0.96 Estim Creat Clear Calc 48.95 Est GFR (MDRD) Af Amer 73 Est GFR (MDRD) Non-Af 60 BUN/Creatinine Ratio 15.6 Glucose 136 H Lactic Acid 4.3 H* Calcium 9.6 Total Bilirubin 0.70 AST 20 ALT 44 Alkaline Phosphatase 83 Troponin I < 0.015 Total Protein 7.6 Albumin 4.2 Globulin 3.4 Albumin/Globulin Ratio 1.2 Lipase 124 Urine Color Urine Clarity Urine pH Ur Specific [place] Urine Protein Urine Glucose (UA) Urine Ketones Urine Occult Blood Urine Nitrite Urine Bilirubin Urine Urobilinogen Ur Leukocyte Esterase Urine RBC Urine WBC Ur Squamous Epith Cells Urine Bacteria Urine Mucus 07/31/18 20:27 WBC RBC Hgb Hct MCV MCH MCHC RDW RDW Differential Plt Count MPV Immature Gran % (Auto) Neut % (Auto) Lymph % (Auto) [place] % (Auto) Eos % (Auto) Baso % (Auto) Absolute Neuts (auto) Absolute Lymphs (auto) Total Counted Sodium Potassium Chloride Carbon Dioxide Anion Gap BUN Creatinine Estim Creat Clear Calc Est GFR (MDRD) Af Amer Est GFR (MDRD) Non-Af BUN/Creatinine Ratio Glucose Lactic Acid Calcium Total Bilirubin AST ALT Alkaline Phosphatase Troponin I Total Protein Albumin Globulin Albumin/Globulin Ratio Lipase Urine Color Yellow Urine Clarity Cloudy Urine pH 8.0 Ur Specific [place] 1.015 Urine Protein 30 H Urine Glucose (UA) Normal Urine Ketones 50 H Urine Occult Blood 25 H Urine Nitrite Positive H Urine Bilirubin Negative Urine Urobilinogen Normal Ur Leukocyte Esterase 500 H Urine RBC 0-5 SEEN Urine WBC >100 SEEN Ur Squamous Epith Cells 0 SEEN Urine Bacteria 4+ Urine Mucus 0 SEEN Assessment/Plan All Active Problems Abdominal cramping (Acute) Nausea (Acute) 73-year-old female with a possible small bowel obstruction, nausea/dry heaves, elevated lactic 1. We will keep patient n.p.o./NG to low intermittent suction and IV fluids. Will check NG placement with KUB. 2. Elevated lactic we will recheck patient's lactic after receiving 2 L of fluids. Patient states she has not drink much today even though she did not h ave actual vomiting only dry heaves. 3. Will hold the Lovenox to see how she does overnight. 4. We will continue Protonix. 5. Hypertension per Dr. Keith. Janneth Mancera M.D. Pager: [phone] [facility] [address] [place] [address], Outpatient Pavilion, [address] [place] [address] Office: [phone]
--- NOTE | 2018-07-31 21:37 | RAD_ITS ---
STUDY: X-RAY CHEST REASON FOR EXAM: Female, 73 years old. NG tube placement. TECHNIQUE: Single frontal view of the chest. COMPARISON: November 04, 2017 FINDINGS: There is a nasogastric tube in place with its tip terminating within the expected region of the proximal gastric fundus. The lungs are clear and expanded. There is no demonstrated pleural abnormality. Normal size heart. Normal mediastinum and lane. Normal visualized pulmonary arteries. Normal visualized aortic arch and descending thoracic aorta. Normal visualized thoracic spine. Normal visualized ribs, clavicles, and shoulders. There is no demonstrated abnormality of the visualized soft tissue structures of the upper abdomen. RAD/Chest 1 View (Portable) IMPRESSION: NG tube in a satisfactory position. Electronically Signed: Renetta White MD at 22:24 EDT Tel , Service support ,
[2018-07-31] MEDS: 0.9% Normal Saline 1,000 ML 999 ML IV (21:48)
[2018-07-31] MEDS: Lactated Ringers 1,000 ML 150 ML IV (22:31)
[2018-07-31 23:29] LABS: Reflex Lactate? Y
[2018-07-31] MEDS: hydrALAZINE 20 MG/ML Vial 10 MG IV (23:53)
[2018-08-01 00:26] LABS: Lactic Acid 2.5 mmol/L (0.4-2.0)
[2018-08-01] MEDS: Ondansetron 4 MG/2 ML Vial IV (00:45)
[2018-08-01] MEDS: BENZOCAINE/MENTHOL 1 LOZENGE MUCOUS MEM ×2 (03:50→08:32)
[2018-08-01 04:45] VITALS: BP 144/57; PULSE 81; RESP 16; TEMP 37.7; O2SAT 94
--- NOTE | 2018-08-01 04:50 | RAD_ITS ---
STUDY: X-RAY - ABDOMEN/PELVIS REASON FOR EXAM: Female, 73 years old. Small bowel obstruction TECHNIQUE: 3 views COMPARISON: July 31, 2018 FINDINGS: A nasogastric tube is in place. It appears however can't exclude the region of the fundus. There is no bowel distention or free intraperitoneal air and no abnormal calcifications over the kidneys. There is a mild lumbar scoliosis with convexity to the left. RAD/Abd Decub and/or Erect(Portabl IMPRESSION: No acute findings in the abdomen. Specifically there is no evidence of intestinal obstruction. There is air in the descending colon Electronically Signed: Joesph Sánchez MD at 6:21 EDT Tel , Service support ,
[2018-08-01 04:53] LABS: Absolute Lymphocyte Count 1.11 X10^3/ul (0.83-4.51); Absolute Neutrophil Count 9.5 X10^3/uL (2.0-7.7); Basophil# 0.02 X10^3/uL; Basophil% 0.2 % (0-1); Eosinophil# 0.02 X10^3/uL; Eosinophils% 0.2 % (0-5); Hemoglobin 13.9 g/dl (12.0-15.0); Lymphocyte # 1.11 X10^3/ul (4.0); Lymphocyte % 9.9 % (19-41); Mean Corp Hgb Conc 33.9 g/gl (32-36); Mean Corpuscular Hgb 30.5 pg (27.0-32.0); Mean Corpuscular Volume 90.1 fL (81-99); Mean Platelet Vol. 9.7 fl (6.2-12.0); Monocyte# 0.54 X10^3/uL; Monocyte% 4.8 % (0-10); Neutrophil # 9.48 X10^3/uL (2.7-7.7); Neutrophil % 84.7 % (47-70); Platelet Count 241 K/mm3 (150-450); RBC Distribution Width CV 12.6 % (11.6-14.6); RBC Distribution Width SD 41.1 fl (35.1-43.9); Red Blood Count 4.55 M/mm3 (4.2-5.4); White Blood Count 11.2 K/mm3 (4.4-11.0)
[2018-08-01 04:57] LABS: POSITIVE COUNT NO; POSITIVE DIFFERENTIAL NO; POSITIVE MORPHOLOGY NO
[2018-08-01 05:12] LABS: Anion Gap 10 (5-15); BUN 9 mg/dL (7-18); BUN/Creat Ratio 14.2 RATIO (10-20); Calcium,Total 8.2 mg/dL (8.5-10.1); Chloride 110 mmol/L (98-107); Creatinine, Serum 0.63 mg/dL (0.55-1.02); EST Glomerular Filtration Rate 98 mL/min (>60); Est Glom Filt Rate - Afr Amer 118 mL/min (>60); Estimated Creatinine Clearance 46.47 ml/min; Glucose 103 mg/dL (74-106); Potassium 3.8 mmol/L (3.5-5.1); Sodium Level 144 mmol/L (136-145)
[2018-08-01 05:20] LABS: Lactic Acid 1.4 mmol/L (0.4-2.0)
--- NOTE | 2018-08-01 07:28 | PCM.PN.HOSP ---
Patient Problems: Active and Suspected Problems Abdominal cramping (Acute) Nausea (Acute) Subjective: Patient is a 73-year-old lady presented with abdominal pain CT of the abdomen obtained on admission demonstrated Small bowel obstruction involving the distal ileum. Objective: GENERAL: cooperative HEENT: Atraumatic; NG tube in place EYES; Anicteric, Normal Conjunctiva NECK; supple, normal thyroid, no distended JVD. RESPIRATORY: Diminished to auscultation bilaterally, CARDIOVASCULAR: Regular S1 S2, no audible murmurs GI: soft, non-tender, normoactive bowel sounds, : No Renal angle tenderness; EXTREMITIES: No edema, no clubbing, no cyanosis. MUSCULOSKELETAL: No Joint Tenderness; no muscle waisting NEURO: Awake; no lateralizing signs. SKIN: No Rash PSYCH; Normal affect Vitals/I&O's: Vital Signs Temp Pulse Resp BP Pulse Ox 99.8 F H 81 16 144/57 H 94 08/01/18 04:45 08/01/18 04:45 08/01/18 04:45 08/01/18 04:45 08/01/18 04:45 Oxygen Delivery Method Room Air Weight: 60.555 kg Body Mass Index (BMI) 26.9 Intake and Output for Last 24 Hours 07/30/18 07/31/18 08/01/18 23:59 23:59 23:59 Intake Total 1600 / 1600 Output Total 750 / 750 Balance 850 / 850 Laboratory Results 07/31/18 18:55: WBC 11.0, RBC 5.01, Hgb 15.3 H, Hct 44.5, MCV 88.8, MCH 30.5, MCHC 34.4, RDW 12.6, RDW Differential 39.9, Plt Count 222, MPV 9.9, Immature Gran % (Auto) 0.200, Neut % (Auto) 82.3 H, Lymph % (Auto) 13.4 L, [place] % (Auto) 3.4, Eos % (Auto) 0.5, Baso % (Auto) 0.2, Absolute Neuts (auto) 9.0 H, Absolute Lymphs (auto) 1.47, Total Counted Not Reportable 07/31/18 18:55: Sodium 138, Potassium 4.0, Chloride 105, Carbon Dioxide 22.0, Anion Gap 11, BUN 15, Creatinine 0.96, Estim Creat Clear Calc 48.95, Est GFR (MDRD) Af Amer 73, Est GFR (MDRD) Non-Af 60, BUN/Creatinine Ratio 15.6, Glucose 136 H, Calcium 9.6, Total Bilirubin 0.70, AST 20, ALT 44, Alkaline Phosphatase 83, Troponin I < 0.015, Total Protein 7.6, Albumin 4.2, Globulin 3.4, Albumin/Globulin Ratio 1.2, Lipase 124 07/31/18 18:55: Lactic Acid 4.3 H* 07/31/18 20:27: Urine Color Yellow, Urine Clarity Cloudy, Urine pH 8.0, Ur Specific [place] 1.015, Urine Protein 30 H, Urine Glucose (UA) Normal, Urine Ketones 50 H, Urine Occult Blood 25 H, Urine Nitrite Positive H, Urine Bilirubin Negative, Urine Urobilinogen Normal, Ur Leukocyte Esterase 500 H, Urine RBC 0-5 SEEN, Urine WBC >100 SEEN, Ur Squamous Epith Cells 0 SEEN, Urine Bacteria 4+, Urine Mucus 0 SEEN 07/31/18 23:38: Lactic Acid 2.5 H 08/01/18 04:40: WBC 11.2 H, RBC 4.55, Hgb 13.9, Hct 41.0, MCV 90.1, MCH 30.5, MCHC 33.9, RDW 12.6, RDW Differential 41.1, Plt Count 241, MPV 9.7, Immature Gran % (Auto) 0.200, Neut % (Auto) 84.7 H, Lymph % (Auto) 9.9 L, [place] % (Auto) 4.8, Eos % (Auto) 0.2, Baso % (Auto) 0.2, Absolute Neuts (auto) 9.5 H, Absolute Lymphs (auto) 1.11, Total Counted Not Reportable 08/01/18 04:40: Sodium 144, Potassium 3.8, Chloride 110 H, Carbon Dioxide 24.0, Anion Gap 10, BUN 9, Creatinine 0.63, Estim Creat Clear Calc 46.47, Est GFR (MDRD) Af Amer 118, Est GFR (MDRD) Non-Af 98, BUN/Creatinine Ratio 14.2, Glucose 103, Calcium 8.2 L 08/01/18 04:40: Lactic Acid 1.4 Current Medications Amlodipine Besylate (Norvasc) 10 mg PO DAILY JESSICA Atorvastatin Calcium (Lipitor) 10 mg PO QHS [facility] Hydralazine HCl (Apresoline Iv) 10 mg IV Q6H PRN PRN PRN Reason: BLOOD PRESSURE Last Admin: 07/31/18 23:53 Dose: 10 mg Lactated Ringer's () 1,000 mls @ 150 mls/hr IV .Q6H40M [facility] Last Admin: 07/31/18 22:31 Dose: 150 mls/hr Pantoprazole Sodium 40 mg/ (Sodium Chloride) 110 mls @ 330 mls/hr IV Q24 [facility] Trimethoprim/Sulfamethoxazole (160 mg/ Dextrose) 260 mls @ 175 mls/hr IV Q12 [facility] Last Admin: 07/31/18 22:51 Dose: 175 mls/hr Influenza Virus Vaccine Quadrival (Fluarix/Fluzone) 0.5 ml IM .ONCE ONE Stop: 08/01/18 10:01 Morphine Sulfate () 1 - 2 mg IV Q2H PRN PRN PRN Reason: SEVERE PAIN () Ondansetron HCl (Zofran) 4 mg IV Q6H PRN PRN PRN Reason: NAUSEA/VOMITING Last Admin: 08/01/18 00:45 Dose: 4 mg Sodium Chloride () 5 - 30 ml IV UD PRN PRN Reason: SALINE FLUSH Throat Lozenges (Cepacol Sore Throat Lozenge) 1 lozenge MUCOUS MEM Q2H PRN PRN PRN Reason: SORE THROAT Last Admin: 08/01/18 03:50 Dose: 1 lozenge Medical Necessity - Tobacco Use Smoking Status: Never smoker Tobacco Use: Non-smoker Assessment/Plan All Active Problems Abdominal cramping (Acute) Nausea (Acute) Patient is a 73-year-old lady presented with abdominal pain CT of the abdomen obtained on admission demonstrated Small bowel obstruction involving the distal ileum. 1. Small bowel obstruction: Patient has been admitted to the surgical service currently being managed conservatively with bowel rest IV fluids as well as pain medication in addition to NG tube to suction subsequent management deferred to Dr. Mancera 2. Lactic acidosis secondary to small bowel obstruction no evidence of sepsis 3. Hypertension patient blood pressure was markedly elevated with systolic in 180s on admission patient was started on amlodipine daily in addition to IV hydralazine as needed 4. Acute Cystitis patient started on Rocephin 5. Dyslipidemia patient is on lovastatin at home 6. GERD on Prilosec Clinical Impression(s) from Imaging Studies Abdomen/Pelvis CT 07/31/18 19:12 IMPRESSION: Small bowel obstruction involving the distal ileum. Atherosclerosis. Small hiatal hernia. Electronically Signed: Renetta White MD at 20:08 EDT Tel , Service support , Chest X-Ray 07/31/18 21:37 IMPRESSION: NG tube in a satisfactory position. Electronically Signed: Renetta White MD at 22:24 EDT Tel , Service support , Abdomen X-Ray 08/01/18 04:50 IMPRESSION: No acute findings in the abdomen. Specifically there is no evidence of intestinal obstruction. There is air in the descending colon Electronically Signed: Joesph Sánchez MD at 6:21 EDT Tel , Service support , Active Medications Amlodipine Besylate (Norvasc) 10 mg PO DAILY [facility] Last Admin: 08/01/18 08:24 Dose: 10 mg Atorvastatin Calcium (Lipitor) 10 mg PO QHS [facility] Enoxaparin Sodium (Lovenox) 30 mg SC DAILY [facility] Hydralazine HCl (Apresoline Iv) 10 mg IV Q6H PRN PRN PRN Reason: BLOOD PRESSURE Last Admin: 07/31/18 23:53 Dose: 10 mg Lactated Ringer's () 1,000 mls @ 150 mls/hr IV .Q6H40M [facility] Last Admin: 08/01/18 08:11 Dose: 150 mls/hr Pantoprazole Sodium 40 mg/ (Sodium Chloride) 110 mls @ 330 mls/hr IV Q24 [facility] Ceftriaxone Sodium 1 gm/ N/A 50 mls @ 100 mls/hr IV Q24 [facility] Last Admin: 08/01/18 08:24 Dose: 100 mls/hr Influenza Virus Vaccine Quadrival (Fluarix/Fluzone) 0.5 ml IM .ONCE ONE Stop: 08/01/18 10:01 Morphine Sulfate () 1 - 2 mg IV Q2H PRN PRN PRN Reason: SEVERE PAIN (-07/28) Ondansetron HCl (Zofran) 4 mg IV Q6H PRN PRN PRN Reason: NAUSEA/VOMITING Last Admin: 08/01/18 00:45 Dose: 4 mg Sodium Chloride () 5 - 30 ml IV UD PRN PRN Reason: SALINE FLUSH Throat Lozenges (Cepacol Sore Throat Lozenge) 1 lozenge MUCOUS MEM Q2H PRN PRN PRN Reason: SORE THROAT Last Admin: 08/01/18 08:32 Dose: 1 lozenge Code Visit Inpatient E&M: 00412 [facility] Hosp L3
--- NOTE | 2018-08-01 07:33 | PN_ITS ---
Patient Problems: Active and Suspected Problems Abdominal cramping (Acute) Nausea (Acute) Subjective: Patient is a 73-year-old lady presented with abdominal pain CT of the abdomen obtained on admission demonstrated Small bowel obstruction involving the distal ileum. Objective: GENERAL: cooperative HEENT: Atraumatic; NG tube in place EYES; Anicteric, Normal Conjunctiva NECK; supple, normal thyroid, no distended JVD. RESPIRATORY: Diminished to auscultation bilaterally, CARDIOVASCULAR: Regular S1 S2, no audible murmurs GI: soft, non-tender, normoactive bowel sounds, : No Renal angle tenderness; EXTREMITIES: No edema, no clubbing, no cyanosis. MUSCULOSKELETAL: No Joint Tenderness; no muscle waisting NEURO: Awake; no lateralizing signs. SKIN: No Rash PSYCH; Normal affect Vitals/I&O's: Vital Signs Temp Pulse Resp BP Pulse Ox 99.8 F H 81 16 144/57 H 94 08/01/18 04:45 08/01/18 04:45 08/01/18 04:45 08/01/18 04:45 08/01/18 04:45 Oxygen Delivery Method Room Air Weight: 60.555 kg Body Mass Index (BMI) 26.9 Intake and Output for Last 24 Hours 07/30/18 07/31/18 08/01/18 23:59 23:59 23:59 Intake Total 1600 / 1600 Output Total 750 / 750 Balance 850 / 850 Laboratory Results 07/31/18 18:55: WBC 11.0, RBC 5.01, Hgb 15.3 H, Hct 44.5, MCV 88.8, MCH 30.5, MCHC 34.4, RDW 12.6, RDW Differential 39.9, Plt Count 222, MPV 9.9, Immature Gran % (Auto) 0.200, Neut % (Auto) 82.3 H, Lymph % (Auto) 13.4 L, [place] % (Auto) 3.4, Eos % (Auto) 0.5, Baso % (Auto) 0.2, Absolute Neuts (auto) 9.0 H, Absolute Lymphs (auto) 1.47, Total Counted Not Reportable 07/31/18 18:55: Sodium 138, Potassium 4.0, Chloride 105, Carbon Dioxide 22.0, Anion Gap 11, BUN 15, Creatinine 0.96, Estim Creat Clear Calc 48.95, Est GFR (MDRD) Af Amer 73, Est GFR (MDRD) Non-Af 60, BUN/Creatinine Ratio 15.6, Glucose 136 H, Calcium 9.6, Total Bilirubin 0.70, AST 20, ALT 44, Alkaline Phosphatase 83, Troponin I < 0.015, Total Protein 7.6, Albumin 4.2, Globulin 3.4, Albumin/Globulin Ratio 1.2, Lipase 124 07/31/18 18:55: Lactic Acid 4.3 H* 07/31/18 20:27: Urine Color Yellow, Urine Clarity Cloudy, Urine pH 8.0, Ur Specific [place] 1.015, Urine Protein 30 H, Urine Glucose (UA) Normal, Urine Ketones 50 H, Urine Occult Blood 25 H, Urine Nitrite Positive H, Urine Bilirubin Negative, Urine Urobilinogen Normal, Ur Leukocyte Esterase 500 H, Urine RBC 0-5 SEEN, Urine WBC >100 SEEN, Ur Squamous Epith Cells 0 SEEN, Urine Bacteria 4+, Urine Mucus 0 SEEN 07/31/18 23:38: Lactic Acid 2.5 H 08/01/18 04:40: WBC 11.2 H, RBC 4.55, Hgb 13.9, Hct 41.0, MCV 90.1, MCH 30.5, MCHC 33.9, RDW 12.6, RDW Differential 41.1, Plt Count 241, MPV 9.7, Immature Gran % (Auto) 0.200, Neut % (Auto) 84.7 H, Lymph % (Auto) 9.9 L, [place] % (Auto) 4.8, Eos % (Auto) 0.2, Baso % (Auto) 0.2, Absolute Neuts (auto) 9.5 H, Absolute Lymphs (auto) 1.11, Total Counted Not Reportable 08/01/18 04:40: Sodium 144, Potassium 3.8, Chloride 110 H, Carbon Dioxide 24.0, Anion Gap 10, BUN 9, Creatinine 0.63, Estim Creat Clear Calc 46.47, Est GFR (MDRD) Af Amer 118, Est GFR (MDRD) Non-Af 98, BUN/Creatinine Ratio 14.2, Glucose 103, Calcium 8.2 L 08/01/18 04:40: Lactic Acid 1.4 Current Medications Amlodipine Besylate (Norvasc) 10 mg PO DAILY JESSICA Atorvastatin Calcium (Lipitor) 10 mg PO QHS [facility] Hydralazine HCl (Apresoline Iv) 10 mg IV Q6H PRN PRN PRN Reason: BLOOD PRESSURE Last Admin: 07/31/18 23:53 Dose: 10 mg Lactated Ringer's () 1,000 mls @ 150 mls/hr IV .Q6H40M [facility] Last Admin: 07/31/18 22:31 Dose: 150 mls/hr Pantoprazole Sodium 40 mg/ (Sodium Chloride) 110 mls @ 330 mls/hr IV Q24 [facility] Trimethoprim/Sulfamethoxazole (160 mg/ Dextrose) 260 mls @ 175 mls/hr IV Q12 [facility] Last Admin: 07/31/18 22:51 Dose: 175 mls/hr Influenza Virus Vaccine Quadrival (Fluarix/Fluzone) 0.5 ml IM .ONCE ONE Stop: 08/01/18 10:01 Morphine Sulfate () 1 - 2 mg IV Q2H PRN PRN PRN Reason: SEVERE PAIN () Ondansetron HCl (Zofran) 4 mg IV Q6H PRN PRN PRN Reason: NAUSEA/VOMITING Last Admin: 08/01/18 00:45 Dose: 4 mg Sodium Chloride () 5 - 30 ml IV UD PRN PRN Reason: SALINE FLUSH Throat Lozenges (Cepacol Sore Throat Lozenge) 1 lozenge MUCOUS MEM Q2H PRN PRN PRN Reason: SORE THROAT Last Admin: 08/01/18 03:50 Dose: 1 lozenge Medical Necessity - Tobacco Use Smoking Status: Never smoker Tobacco Use: Non-smoker Assessment/Plan All Active Problems Abdominal cramping (Acute) Nausea (Acute) Patient is a 73-year-old lady presented with abdominal pain CT of the abdomen obtained on admission demonstrated Small bowel obstruction involving the distal ileum. 1. Small bowel obstruction: Patient has been admitted to the surgical service currently being managed conservatively with bowel rest IV fluids as well as pain medication in addition to NG tube to suction subsequent management deferred to Dr. Mancera 2. Lactic acidosis secondary to small bowel obstruction no evidence of sepsis 3. Hypertension patient blood pressure was markedly elevated with systolic in 180s on admission patient was started on amlodipine daily in addition to IV hydralazine as needed 4. Acute Cystitis patient started on Rocephin 5. Dyslipidemia patient is on lovastatin at home 6. GERD on Prilosec Clinical Impression(s) from Imaging Studies Abdomen/Pelvis CT 07/31/18 19:12 IMPRESSION: Small bowel obstruction involving the distal ileum. Atherosclerosis. Small hiatal hernia. Electronically Signed: Renetta White MD at 20:08 EDT Tel , Service support , Chest X-Ray 07/31/18 21:37 IMPRESSION: NG tube in a satisfactory position. Electronically Signed: Renetta White MD at 22:24 EDT Tel , Service support , Abdomen X-Ray 08/01/18 04:50 IMPRESSION: No acute findings in the abdomen. Specifically there is no evidence of intestinal obstruction. There is air in the descending colon Electronically Signed: Joesph Sánchez MD at 6:21 EDT Tel , Service support , Active Medications Amlodipine Besylate (Norvasc) 10 mg PO DAILY [facility] Last Admin: 08/01/18 08:24 Dose: 10 mg Atorvastatin Calcium (Lipitor) 10 mg PO QHS [facility] Enoxaparin Sodium (Lovenox) 30 mg SC DAILY [facility] Hydralazine HCl (Apresoline Iv) 10 mg IV Q6H PRN PRN PRN Reason: BLOOD PRESSURE Last Admin: 07/31/18 23:53 Dose: 10 mg Lactated Ringer's () 1,000 mls @ 150 mls/hr IV .Q6H40M [facility] Last Admin: 08/01/18 08:11 Dose: 150 mls/hr Pantoprazole Sodium 40 mg/ (Sodium Chloride) 110 mls @ 330 mls/hr IV Q24 [facility] Ceftriaxone Sodium 1 gm/ N/A 50 mls @ 100 mls/hr IV Q24 [facility] Last Admin: 08/01/18 08:24 Dose: 100 mls/hr Influenza Virus Vaccine Quadrival (Fluarix/Fluzone) 0.5 ml IM .ONCE ONE Stop: 08/01/18 10:01 Morphine Sulfate () 1 - 2 mg IV Q2H PRN PRN PRN Reason: SEVERE PAIN (-07/28) Ondansetron HCl (Zofran) 4 mg IV Q6H PRN PRN PRN Reason: NAUSEA/VOMITING Last Admin: 08/01/18 00:45 Dose: 4 mg Sodium Chloride () 5 - 30 ml IV UD PRN PRN Reason: SALINE FLUSH Throat Lozenges (Cepacol Sore Throat Lozenge) 1 lozenge MUCOUS MEM Q2H PRN PRN PRN Reason: SORE THROAT Last Admin: 08/01/18 08:32 Dose: 1 lozenge Code Visit Inpatient E&M: [id number] [facility] Hosp L3
--- NOTE | 2018-08-01 07:57 | PCM.PN.SRG ---
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, and she has about 300 of clear fluid denies abdominal pain however on palpation states that it is slightly better, patient was placed on Septra IV for her UTI culture pending - Physical Exam General: Alert, Oriented x3, Cooperative, No apparent distress HEENT: Atraumatic Lungs: Normal air movement Cardiovascular: Regular rate Abdomen: Soft, Non-Distended, Tender - Minimal in the bilateral lower quadrants, no peritoneal signs Extremities: No clubbing, No cyanosis, No edema Vital Signs Temp Pulse Resp BP Pulse Ox 99.8 F H 81 16 144/57 H 94 08/01/18 04:45 08/01/18 04:45 08/01/18 04:45 08/01/18 04:45 08/01/18 04:45 Oxygen Delivery Method Room Air Weight: 133 lb 8 oz Body Mass Index (BMI) 26.9 Intake and Output for Last 24 Hours 07/30/18 07/31/18 08/01/18 23:59 23:59 23:59 Intake Total 1600 / 1600 Output Total 750 / 750 Balance 850 / 850 Laboratory Tests Past 24 Hrs 07/31/18 07/31/18 07/31/18 18:55 18:55 18:55 WBC 11.0 RBC 5.01 Hgb 15.3 H Hct 44.5 MCV 88.8 MCH 30.5 MCHC 34.4 RDW 12.6 RDW Differential 39.9 Plt Count 222 MPV 9.9 Immature Gran % (Auto) 0.200 Neut % (Auto) 82.3 H Lymph % (Auto) 13.4 L [place] % (Auto) 3.4 Eos % (Auto) 0.5 Baso % (Auto) 0.2 Absolute Neuts (auto) 9.0 H Absolute Lymphs (auto) 1.47 Total Counted Not Reportable Sodium 138 Potassium 4.0 Chloride 105 Carbon Dioxide 22.0 Anion Gap 11 BUN 15 Creatinine 0.96 Estim Creat Clear Calc 48.95 Est GFR (MDRD) Af Amer 73 Est GFR (MDRD) Non-Af 60 BUN/Creatinine Ratio 15.6 Glucose 136 H Lactic Acid 4.3 H* Calcium 9.6 Total Bilirubin 0.70 AST 20 ALT 44 Alkaline Phosphatase 83 Troponin I < 0.015 Total Protein 7.6 Albumin 4.2 Globulin 3.4 Albumin/Globulin Ratio 1.2 Lipase 124 Urine Color Urine Clarity Urine pH Ur Specific [place] Urine Protein Urine Glucose (UA) Urine Ketones Urine Occult Blood Urine Nitrite Urine Bilirubin Urine Urobilinogen Ur Leukocyte Esterase Urine RBC Urine WBC Ur Squamous Epith Cells Urine Bacteria Urine Mucus 07/31/18 07/31/18 08/01/18 20:27 23:38 04:40 WBC 11.2 H RBC 4.55 Hgb 13.9 Hct 41.0 MCV 90.1 MCH 30.5 MCHC 33.9 RDW 12.6 RDW Differential 41.1 Plt Count 241 MPV 9.7 Immature Gran % (Auto) 0.200 Neut % (Auto) 84.7 H Lymph % (Auto) 9.9 L [place] % (Auto) 4.8 Eos % (Auto) 0.2 Baso % (Auto) 0.2 Absolute Neuts (auto) 9.5 H Absolute Lymphs (auto) 1.11 Total Counted Not Reportable Sodium Potassium Chloride Carbon Dioxide Anion Gap BUN Creatinine Estim Creat Clear Calc Est GFR (MDRD) Af Amer Est GFR (MDRD) Non-Af BUN/Creatinine Ratio Glucose Lactic Acid 2.5 H Calcium Total Bilirubin AST ALT Alkaline Phosphatase Troponin I Total Protein Albumin Globulin Albumin/Globulin Ratio Lipase Urine Color Yellow Urine Clarity Cloudy Urine pH 8.0 Ur Specific [place] 1.015 Urine Protein 30 H Urine Glucose (UA) Normal Urine Ketones 50 H Urine Occult Blood 25 H Urine Nitrite Positive H Urine Bilirubin Negative Urine Urobilinogen Normal Ur Leukocyte Esterase 500 H Urine RBC 0-5 SEEN Urine WBC >100 SEEN Ur Squamous Epith Cells 0 SEEN Urine Bacteria 4+ Urine Mucus 0 SEEN 08/01/18 08/01/18 04:40 04:40 WBC RBC Hgb Hct MCV MCH MCHC RDW RDW Differential Plt Count MPV Immature Gran % (Auto) Neut % (Auto) Lymph % (Auto) [place] % (Auto) Eos % (Auto) Baso % (Auto) Absolute Neuts (auto) Absolute Lymphs (auto) Total Counted Sodium 144 Potassium 3.8 Chloride 110 H Carbon Dioxide 24.0 Anion Gap 10 BUN 9 Creatinine 0.63 Estim Creat Clear Calc 46.47 Est GFR (MDRD) Af Amer 118 Est GFR (MDRD) Non-Af 98 BUN/Creatinine Ratio 14.2 Glucose 103 Lactic Acid 1.4 Calcium 8.2 L Total Bilirubin AST ALT Alkaline Phosphatase Troponin I Total Protein Albumin Globulin Albumin/Globulin Ratio Lipase Urine Color Urine Clarity Urine pH Ur Specific [place] Urine Protein Urine Glucose (UA) Urine Ketones Urine Occult Blood Urine Nitrite Urine Bilirubin Urine Urobilinogen Ur Leukocyte Esterase Urine RBC Urine WBC Ur Squamous Epith Cells Urine Bacteria Urine Mucus Medical Necessity - Tobacco Use Smoking Status: Never smoker Tobacco Use: Non-smoker Assessment/Plan All Active Problems Abdominal cramping (Acute) Nausea (Acute) 73-year-old female with a possible small bowel obstruction, nausea/dry heaves, elevated lactic?resolved 1. We will keep patient n.p.o./NG to low intermittent suction and IV fluids. KUB did show gas in the descending colon which was more air than previously seen on CT in the colon. However patient still denies any bowel function 2. Elevated lactic?improved with hydration in normal range. 3. We will give Lovenox for DVT prophylaxis 4. We will continue Protonix. 5. UTI culture pending, changing to Rocephin IV. Patient did have a slight leukocytosis of 11.2 up from 11 yesterday but she did only receive 1 dose of antibiotics for her UTI as well. We will continue to monitor 6. Hypertension per hospitalist Janneth Mancera M.D. Pager: [phone] [facility] [address] [place] [address], [facility], [address] [place] [address] Office: [phone]
--- NOTE | 2018-08-01 08:01 | PN.SURG_ITS ---
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, and she has about 300 of clear fluid denies abdominal pain however on palpation states that it is slightly better, patient was placed on Septra IV for her UTI culture pending - Physical Exam General: Alert, Oriented x3, Cooperative, No apparent distress HEENT: Atraumatic Lungs: Normal air movement Cardiovascular: Regular rate Abdomen: Soft, Non-Distended, Tender - Minimal in the bilateral lower quadrants, no peritoneal signs Extremities: No clubbing, No cyanosis, No edema Vital Signs Temp Pulse Resp BP Pulse Ox 99.8 F H 81 16 144/57 H 94 08/01/18 04:45 08/01/18 04:45 08/01/18 04:45 08/01/18 04:45 08/01/18 04:45 Oxygen Delivery Method Room Air Weight: 133 lb 8 oz Body Mass Index (BMI) 26.9 Intake and Output for Last 24 Hours 07/30/18 07/31/18 08/01/18 23:59 23:59 23:59 Intake Total 1600 / 1600 Output Total 750 / 750 Balance 850 / 850 Laboratory Tests Past 24 Hrs 07/31/18 07/31/18 07/31/18 18:55 18:55 18:55 WBC 11.0 RBC 5.01 Hgb 15.3 H Hct 44.5 MCV 88.8 MCH 30.5 MCHC 34.4 RDW 12.6 RDW Differential 39.9 Plt Count 222 MPV 9.9 Immature Gran % (Auto) 0.200 Neut % (Auto) 82.3 H Lymph % (Auto) 13.4 L [place] % (Auto) 3.4 Eos % (Auto) 0.5 Baso % (Auto) 0.2 Absolute Neuts (auto) 9.0 H Absolute Lymphs (auto) 1.47 Total Counted Not Reportable Sodium 138 Potassium 4.0 Chloride 105 Carbon Dioxide 22.0 Anion Gap 11 BUN 15 Creatinine 0.96 Estim Creat Clear Calc 48.95 Est GFR (MDRD) Af Amer 73 Est GFR (MDRD) Non-Af 60 BUN/Creatinine Ratio 15.6 Glucose 136 H Lactic Acid 4.3 H* Calcium 9.6 Total Bilirubin 0.70 AST 20 ALT 44 Alkaline Phosphatase 83 Troponin I < 0.015 Total Protein 7.6 Albumin 4.2 Globulin 3.4 Albumin/Globulin Ratio 1.2 Lipase 124 Urine Color Urine Clarity Urine pH Ur Specific [place] Urine Protein Urine Glucose (UA) Urine Ketones Urine Occult Blood Urine Nitrite Urine Bilirubin Urine Urobilinogen Ur Leukocyte Esterase Urine RBC Urine WBC Ur Squamous Epith Cells Urine Bacteria Urine Mucus 07/31/18 07/31/18 08/01/18 20:27 23:38 04:40 WBC 11.2 H RBC 4.55 Hgb 13.9 Hct 41.0 MCV 90.1 MCH 30.5 MCHC 33.9 RDW 12.6 RDW Differential 41.1 Plt Count 241 MPV 9.7 Immature Gran % (Auto) 0.200 Neut % (Auto) 84.7 H Lymph % (Auto) 9.9 L [place] % (Auto) 4.8 Eos % (Auto) 0.2 Baso % (Auto) 0.2 Absolute Neuts (auto) 9.5 H Absolute Lymphs (auto) 1.11 Total Counted Not Reportable Sodium Potassium Chloride Carbon Dioxide Anion Gap BUN Creatinine Estim Creat Clear Calc Est GFR (MDRD) Af Amer Est GFR (MDRD) Non-Af BUN/Creatinine Ratio Glucose Lactic Acid 2.5 H Calcium Total Bilirubin AST ALT Alkaline Phosphatase Troponin I Total Protein Albumin Globulin Albumin/Globulin Ratio Lipase Urine Color Yellow Urine Clarity Cloudy Urine pH 8.0 Ur Specific V[place]ell 1.015 Urine Protein 30 H Urine Glucose (UA) Normal Urine Ketones 50 H Urine Occult Blood 25 H Urine Nitrite Positive H Urine Bilirubin Negative Urine Urobilinogen Normal Ur Leukocyte Esterase 500 H Urine RBC 0-5 SEEN Urine WBC >100 SEEN Ur Squamous Epith Cells 0 SEEN Urine Bacteria 4+ Urine Mucus 0 SEEN 08/01/18 08/01/18 04:40 04:40 WBC RBC Hgb Hct MCV MCH MCHC RDW RDW Differential Plt Count MPV Immature Gran % (Auto) Neut % (Auto) Lymph % (Auto) [place] % (Auto) Eos % (Auto) Baso % (Auto) Absolute Neuts (auto) Absolute Lymphs (auto) Total Counted Sodium 144 Potassium 3.8 Chloride 110 H Carbon Dioxide 24.0 Anion Gap 10 BUN 9 Creatinine 0.63 Estim Creat Clear Calc 46.47 Est GFR (MDRD) Af Amer 118 Est GFR (MDRD) Non-Af 98 BUN/Creatinine Ratio 14.2 Glucose 103 Lactic Acid 1.4 Calcium 8.2 L Total Bilirubin AST ALT Alkaline Phosphatase Troponin I Total Protein Albumin Globulin Albumin/Globulin Ratio Lipase Urine Color Urine Clarity Urine pH Ur Specific [place] Urine Protein Urine Glucose (UA) Urine Ketones Urine Occult Blood Urine Nitrite Urine Bilirubin Urine Urobilinogen Ur Leukocyte Esterase Urine RBC Urine WBC Ur Squamous Epith Cells Urine Bacteria Urine Mucus Medical Necessity - Tobacco Use Smoking Status: Never smoker Tobacco Use: Non-smoker Assessment/Plan All Active Problems Abdominal cramping (Acute) Nausea (Acute) 73-year-old female with a possible small bowel obstruction, nausea/dry heaves, elevated lactic?resolved 1. We will keep patient n.p.o./NG to low intermittent suction and IV fluids. KUB did show gas in the descending colon which was more air than previously seen on CT in the colon. However patient still denies any bowel function 2. Elevated lactic?improved with hydration in normal range. 3. We will give Lovenox for DVT prophylaxis 4. We will continue Protonix. 5. UTI culture pending, changing to Rocephin IV. Patient did have a slight leukocytosis of 11.2 up from 11 yesterday but she did only receive 1 dose of antibiotics for her UTI as well. We will continue to monitor 6. Hypertension per hospitalist Janneth Mancera M.D. Pager: [phone] [facility] [address] [place] [address], [facility]patient [facility], [address] [place] [address] Office: [phone]
[2018-08-01] MEDS: Lactated Ringers 1,000 ML 150 ML IV (08:11)
[2018-08-01 08:21] VITALS: BP 149/69; PULSE 76; RESP 16; TEMP 37.4; O2SAT 96
[2018-08-01] MEDS: amLODIPine 10 MG Tablet PO (08:24)
[2018-08-01] MEDS: Enoxaparin 30 MG/0.3 ML Syringe SC (11:15)
[2018-08-01 13:29] VITALS: BP 157/77; PULSE 76; RESP 18; TEMP 36.6; O2SAT 99
--- NOTE | 2018-08-01 14:32 | RAD_ITS ---
STUDY: X-RAY - ABDOMEN/PELVIS REASON FOR EXAM: Female, 73 years old. Small bowel obstruction TECHNIQUE: Two AP supine views of the abdomen and pelvis. COMPARISON: 08/01/2018 FINDINGS: Normal visualized lung bases. Enteric tube tip in the body of the stomach. There is an unremarkable bowel gas pattern. Contrast in the colon. There is no demonstrated free abdominal air. The visualized liver, spleen and kidneys are grossly normal in size and morphology. Normal soft tissue structures. Normal visualized osseous structures. RAD/Abdomen Single View IMPRESSION: Nonobstructive bowel gas pattern. Electronically Signed: Zain Reyes MD at 1:55 EDT Tel , Service support ,
--- NOTE | 2018-08-01 14:55 | DCINST_ITS ---
Discharge Diet: Light diet - advance as tolerated Discharge Activity: Return to Normal Activity Call your doctor if you observe: Fever of 101 or Higher, Inability to have a bowel movement Allergies/Adverse Reactions: Allergies Penicillins Allergy (Verified 07/31/18 18:43) Rash Medications to take at Discharge Lovastatin [Mevacor] 40 mg PO DAILY 05/12/14 Culver-3 Fatty Acids [Fish Oil] 300 mg PO DAILY 05/12/14 Omeprazole [Prilosec] 40 mg PO DAILY 05/12/14 Ubidecarenone [Co Q-10] 100 mg PO 05/12/14 Vitamin E 400 units PO DAILY 05/12/14 Amlodipine [Norvasc] 10 mg PO DAILY tablet 08/02/18 Cefdinir [Omnicef [equiv]] 300 mg PO Q12H #10 capsule 08/02/18 The following prescriptions were given: Cefdinir [Omnicef [equiv]] 300 mg PO Q12H #10 capsule Primary Care Physician: Bertin Sanchez DO [Primary Care Provider] - Please follow up with your Primary Care Physician in: 1 week Test Results: Test results from this visit will be discussed in further detail at your follow- up appointment, if applicable. Proposed Discharge Date: 08/02/18
[2018-08-01] MEDS: Lactated Ringers 1,000 ML 80 ML IV (15:40)
[2018-08-01 18:39] VITALS: BP 139/71; PULSE 73; RESP 18; TEMP 37; O2SAT 98
[2018-08-01] MEDS: Atorvastatin Calcium 10 MG Tablet PO (20:47)
[2018-08-02 02:30] VITALS: BP 132/44; PULSE 67; RESP 16; TEMP 37.1; O2SAT 99
[2018-08-02] MEDS: Lactated Ringers 1,000 ML 80 ML IV (03:26)
[2018-08-02 06:04] LABS: Absolute Lymphocyte Count 1.56 X10^3/ul (0.83-4.51); Absolute Neutrophil Count 4.4 X10^3/uL (2.0-7.7); Basophil# 0.01 X10^3/uL; Basophil% 0.2 % (0-1); Eosinophil# 0.15 X10^3/uL; Eosinophils% 2.3 % (0-5); Hematocrit 37.5 % (37-47); Hemoglobin 12.6 g/dl (12.0-15.0); Lymphocyte # 1.56 X10^3/ul (4.0); Mean Corp Hgb Conc 33.6 g/gl (32-36); Mean Corpuscular Hgb 31.1 pg (27.0-32.0); Mean Corpuscular Volume 92.6 fL (81-99); Mean Platelet Vol. 9.9 fl (6.2-12.0); Monocyte% 6.2 % (0-10); Neutrophil # 4.36 X10^3/uL (2.7-7.7); Neutrophil % 67.1 % (47-70); Platelet Count 187 K/mm3 (150-450); RBC Distribution Width CV 12.9 % (11.6-14.6); Red Blood Count 4.05 M/mm3 (4.2-5.4); White Blood Count 6.5 K/mm3 (4.4-11.0)
[2018-08-02 06:06] LABS: POSITIVE COUNT NO; POSITIVE DIFFERENTIAL NO; POSITIVE MORPHOLOGY NO
[2018-08-02 06:26] LABS: Anion Gap 8 (5-15); BUN 7 mg/dL (7-18); BUN/Creat Ratio 11.6 RATIO (10-20); Calcium,Total 8.1 mg/dL (8.5-10.1); Chloride 113 mmol/L (98-107); Creatinine, Serum 0.61 mg/dL (0.55-1.02); EST Glomerular Filtration Rate 102 mL/min (>60); Est Glom Filt Rate - Afr Amer 124 mL/min (>60); Glucose 89 mg/dL (74-106); Potassium 3.6 mmol/L (3.5-5.1); Sodium Level 147 mmol/L (136-145)
--- NOTE | 2018-08-02 07:22 | PN.SURG_ITS ---
Patient Problems: Active and Suspected Problems Abdominal cramping (Acute) Nausea (Acute) Subjective: Patient's contrast study did show contrast throughout the colon, NG was DC'd yesterday, patient was started on clears and has tolerated, will be having a regular diet this morning, urine culture pending - Physical Exam General: Alert, Oriented x3, Cooperative, No apparent distress Abdomen: Soft, Non-Distended, Tender - Sensitive in the lower abdomen, no peritoneal signs Extremities: No clubbing, No cyanosis, No edema Vital Signs Temp Pulse Resp BP Pulse Ox 98.8 F 67 16 132/44 H 99 08/02/18 02:30 08/02/18 02:30 08/02/18 02:30 08/02/18 02:30 08/02/18 02:30 Oxygen Delivery Method Room Air Weight: 133 lb 9.602 oz Body Mass Index (BMI) 26.9 Intake and Output for Last 24 Hours 07/31/18 08/01/18 08/02/18 23:59 23:59 23:59 Intake Total 3856 / 3856 1545 / 1545 Output Total 1350 / 1350 300 / 300 Balance 2506 / 2506 1245 / 1245 Laboratory Tests Past 24 Hrs 08/02/18 08/02/18 05:30 05:30 WBC 6.5 RBC 4.05 L Hgb 12.6 Hct 37.5 MCV 92.6 MCH 31.1 MCHC 33.6 RDW 12.9 RDW Differential 43.0 Plt Count 187 MPV 9.9 Immature Gran % (Auto) 0.200 Neut % (Auto) 67.1 Lymph % (Auto) 24.0 [place] % (Auto) 6.2 Eos % (Auto) 2.3 Baso % (Auto) 0.2 Absolute Neuts (auto) 4.4 Absolute Lymphs (auto) 1.56 Total Counted Not Reportable Sodium 147 H Potassium 3.6 Chloride 113 H Carbon Dioxide 26.0 Anion Gap 8 BUN 7 Creatinine 0.61 Estim Creat Clear Calc 46.50 Est GFR (MDRD) Af Amer 124 Est GFR (MDRD) Non-Af 102 BUN/Creatinine Ratio 11.6 Glucose 89 Calcium 8.1 L Medical Necessity - Tobacco Use Smoking Status: Never smoker Tobacco Use: Non-smoker Assessment/Plan All Active Problems Abdominal cramping (Acute) Nausea (Acute) 73-year-old female with a possible small bowel obstruction?resolved, nausea/dry heaves, elevated lactic?resolved 1. Advance to regular diet, if tolerates regular diet okay to DC per surgery standpoint 2. We will give Lovenox for DVT prophylaxis 3. We will continue Protonix. 4. UTI culture pending, Rocephin IV. Awaiting urine culture prior to DC 5. Hypertension per hospitalist Janneth Mancera M.D. Pager: [phone] [facility] [address] [place] [address], [facility], [address] [place] [address] Office: [phone]
[2018-08-02 09:56] VITALS: BP 138/42; PULSE 67; RESP 18; TEMP 37.1; O2SAT 99
[2018-08-02] MEDS: Pantoprazole Sodium 40 MG Tablet PO (10:02)
[2018-08-02] MEDS: amLODIPine 10 MG Tablet PO (10:03)
[2018-08-02] MEDS: Enoxaparin 30 MG/0.3 ML Syringe SC (10:03)
--- NOTE | 2018-08-02 10:03 | PCM.PN.HOSP ---
Patient Problems: Active and Suspected Problems Abdominal cramping (Acute) Nausea (Acute) Subjective: F/U: HTN Abdomen feeling better, but still sore. Tolerating regular diet. +Flatus. Vitals/I&O's: Vital Signs Temp Pulse Resp BP Pulse Ox 37.1 C 67 18 138/42 H 99 08/02/18 09:56 08/02/18 09:56 08/02/18 09:56 08/02/18 09:56 08/02/18 09:56 Oxygen Delivery Method Room Air Weight: 60.6 kg Body Mass Index (BMI) 26.9 Intake and Output for Last 24 Hours 07/31/18 08/01/18 08/02/18 23:59 23:59 23:59 Intake Total 3856 / 3856 1545 / 1545 Output Total 1350 / 1350 300 / 300 Balance 2506 / 2506 1245 / 1245 General: Alert, No apparent distress HEENT: Atraumatic, Normocephalic Oral: Moist Mucosa, No Gingival or Mucosal Lesions/ Ulcerations Neck: No Nodes, Thyroid Normal Size and Texture Lungs: Clear to auscultation, Normal air movement, No rhonchi, No wheeze Cardiovascular: Regular rate, Regular Rhythm, Normal S1, Normal S2, No murmurs Abdomen: Bowel Sounds Present, Soft, Non-Distended, Tender Extremities: No edema, No Calf Tenderness Laboratory Results 08/02/18 05:30: WBC 6.5, RBC 4.05 L, Hgb 12.6, Hct 37.5, MCV 92.6, MCH 31.1, MCHC 33.6, RDW 12.9, RDW Differential 43.0, Plt Count 187, MPV 9.9, Immature Gran % (Auto) 0.200, Neut % (Auto) 67.1, Lymph % (Auto) 24.0, [place] % (Auto) 6.2, Eos % (Auto) 2.3, Baso % (Auto) 0.2, Absolute Neuts (auto) 4.4, Absolute Lymphs (auto) 1.56, Total Counted Not Reportable 08/02/18 05:30: Sodium 147 H, Potassium 3.6, Chloride 113 H, Carbon Dioxide 26.0, Anion Gap 8, BUN 7, Creatinine 0.61, Estim Creat Clear Calc 46.50, Est GFR (MDRD) Af Amer 124, Est GFR (MDRD) Non-Af 102, BUN/Creatinine Ratio 11.6, Glucose 89, Calcium 8.1 L Current Medications Amlodipine Besylate (Norvasc) 10 mg PO DAILY [facility] Last Admin: 08/01/18 08:24 Dose: 10 mg Atorvastatin Calcium (Lipitor) 10 mg PO QHS [facility] Last Admin: 08/01/18 20:47 Dose: 10 mg Enoxaparin Sodium (Lovenox) 30 mg SC DAILY [facility] Last Admin: 08/01/18 11:15 Dose: 30 mg Hydralazine HCl (Apresoline Iv) 10 mg IV Q6H PRN PRN PRN Reason: BLOOD PRESSURE Last Admin: 07/31/18 23:53 Dose: 10 mg Ceftriaxone Sodium 1 gm/ N/A 50 mls @ 100 mls/hr IV Q24 [facility] Last Admin: 08/01/18 08:24 Dose: 100 mls/hr Lactated Ringer's () 1,000 mls @ 80 mls/hr IV .[id number] [facility] Last Admin: 08/02/18 03:26 Dose: 80 mls/hr Morphine Sulfate () 1 - 2 mg IV Q2H PRN PRN PRN Reason: SEVERE PAIN (6-07/28) Ondansetron HCl (Zofran) 4 mg IV Q6H PRN PRN PRN Reason: NAUSEA/VOMITING Last Admin: 08/01/18 00:45 Dose: 4 mg Pantoprazole Sodium (Protonix) 40 mg PO DAILY [facility] Sodium Chloride () 5 - 30 ml IV UD PRN PRN Reason: SALINE FLUSH Throat Lozenges (Cepacol Sore Throat Lozenge) 1 lozenge MUCOUS MEM Q2H PRN PRN PRN Reason: SORE THROAT Last Admin: 08/01/18 08:32 Dose: 1 lozenge Medical Necessity - Tobacco Use Smoking Status: Never smoker Tobacco Use: Non-smoker Assessment/Plan All Active Problems Abdominal cramping (Acute) Nausea (Acute) 1. HTN stable initial elevated BPs likely d/t pain from SBO continue Norvasc has not required any hydralazine since 2. UTI on CTX UCx from , so far negative. could send patient out on Cipro 500 BID through the 3. SBO resolved tolerated diet still sore mgmt per General surgery 4. DVT proph: LMWH. Medically stable for discharge. Follow up with PCP in 1-2 weeks after discharge. Code Visit Inpatient E&M: 81783 Subs Hosp L2
--- NOTE | 2018-08-02 10:10 | PN_ITS ---
Patient Problems: Active and Suspected Problems Abdominal cramping (Acute) Nausea (Acute) Subjective: F/U: HTN Abdomen feeling better, but still sore. Tolerating regular diet. +Flatus. Vitals/I&O's: Vital Signs Temp Pulse Resp BP Pulse Ox 37.1 C 67 18 138/42 H 99 08/02/18 09:56 08/02/18 09:56 08/02/18 09:56 08/02/18 09:56 08/02/18 09:56 Oxygen Delivery Method Room Air Weight: 60.6 kg Body Mass Index (BMI) 26.9 Intake and Output for Last 24 Hours 07/31/18 08/01/18 08/02/18 23:59 23:59 23:59 Intake Total 3856 / 3856 1545 / 1545 Output Total 1350 / 1350 300 / 300 Balance 2506 / 2506 1245 / 1245 General: Alert, No apparent distress HEENT: Atraumatic, Normocephalic Oral: Moist Mucosa, No Gingival or Mucosal Lesions/ Ulcerations Neck: No Nodes, Thyroid Normal Size and Texture Lungs: Clear to auscultation, Normal air movement, No rhonchi, No wheeze Cardiovascular: Regular rate, Regular Rhythm, Normal S1, Normal S2, No murmurs Abdomen: Bowel Sounds Present, Soft, Non-Distended, Tender Extremities: No edema, No Calf Tenderness Laboratory Results 08/02/18 05:30: WBC 6.5, RBC 4.05 L, Hgb 12.6, Hct 37.5, MCV 92.6, MCH 31.1, MCHC 33.6, RDW 12.9, RDW Differential 43.0, Plt Count 187, MPV 9.9, Immature Gran % (Auto) 0.200, Neut % (Auto) 67.1, Lymph % (Auto) 24.0, [place] % (Auto) 6.2, Eos % (Auto) 2.3, Baso % (Auto) 0.2, Absolute Neuts (auto) 4.4, Absolute Lymphs (auto) 1.56, Total Counted Not Reportable 08/02/18 05:30: Sodium 147 H, Potassium 3.6, Chloride 113 H, Carbon Dioxide 26.0, Anion Gap 8, BUN 7, Creatinine 0.61, Estim Creat Clear Calc 46.50, Est GFR (MDRD) Af Amer 124, Est GFR (MDRD) Non-Af 102, BUN/Creatinine Ratio 11.6, Glucose 89, Calcium 8.1 L Current Medications Amlodipine Besylate (Norvasc) 10 mg PO DAILY [facility] Last Admin: 08/01/18 08:24 Dose: 10 mg Atorvastatin Calcium (Lipitor) 10 mg PO QHS [facility] Last Admin: 08/01/18 20:47 Dose: 10 mg Enoxaparin Sodium (Lovenox) 30 mg SC DAILY [facility] Last Admin: 08/01/18 11:15 Dose: 30 mg Hydralazine HCl (Apresoline Iv) 10 mg IV Q6H PRN PRN PRN Reason: BLOOD PRESSURE Last Admin: 07/31/18 23:53 Dose: 10 mg Ceftriaxone Sodium 1 gm/ N/A 50 mls @ 100 mls/hr IV Q24 [facility] Last Admin: 08/01/18 08:24 Dose: 100 mls/hr Lactated Ringer's () 1,000 mls @ 80 mls/hr IV .[id number] [facility] Last Admin: 08/02/18 03:26 Dose: 80 mls/hr Morphine Sulfate () 1 - 2 mg IV Q2H PRN PRN PRN Reason: SEVERE PAIN (6-07/28) Ondansetron HCl (Zofran) 4 mg IV Q6H PRN PRN PRN Reason: NAUSEA/VOMITING Last Admin: 08/01/18 00:45 Dose: 4 mg Pantoprazole Sodium (Protonix) 40 mg PO DAILY [facility] Sodium Chloride () 5 - 30 ml IV UD PRN PRN Reason: SALINE FLUSH Throat Lozenges (Cepacol Sore Throat Lozenge) 1 lozenge MUCOUS MEM Q2H PRN PRN PRN Reason: SORE THROAT Last Admin: 08/01/18 08:32 Dose: 1 lozenge Medical Necessity - Tobacco Use Smoking Status: Never smoker Tobacco Use: Non-smoker Assessment/Plan All Active Problems Abdominal cramping (Acute) Nausea (Acute) 1. HTN * stable * initial elevated BPs likely d/t pain from SBO * continue Norvasc * has not required any hydralazine since 2. UTI * on CTX * UCx from , so far negative. * could send patient out on Cipro 500 BID through the 3. SBO * resolved * tolerated diet * still sore * mgmt per General surgery 4. DVT proph: LMWH. Medically stable for discharge. Follow up with PCP in 1-2 weeks after discharge. Code Visit Inpatient E&M: 03358 Subs Hosp L2
--- NOTE | 2018-08-02 14:00 | CASEMGMT ---
KEITH GLASER INITIAL REVIEW ASSESSMENT D/C PLAN: Home Face to Face with patient for initial transition planning/care coordination assessment. KEITH GLASER introduced self and role at [facility]. Care providers, pharmacy, and demographics verified. PCP: Bertin Sanchez Preferred Pharmacy: [facility] Retail on day of d/c only. Insurance: [employer] [facility] Prescription Benefit: yes Living Will/HPOA: Does not have LW or HPOA. Offered/accepted Adv Directive information booklet. States does not wish to talk with SW about this at this time. Made aware this can be done as an out-pt. Given information card w/SW contact phone number. LNOK: Son, Shahab Living Arrangements: Pt states she lives alone. States her son lives close and is supportive/helpful. Transportation: Pt states she still drives and her son can help w/transportation if needed. DME: Pt states she has rails/grab bars and a hand-held shower. Pt states she ambulated independently and uses no assistive devices. Denies needing any DME. HHC/SNF: Pt states she has never had HHC or been to a SNF. Denies needs for either. Pt's plans on D/C: Wishes to return home. Denies having any questions, concerns, or needs. CM to follow for any further discharge planning needs that may arise. Javid PA RN, CM
[2018-08-02 14:27] VITALS: BP 139/55; PULSE 69; RESP 18; TEMP 37.1; O2SAT 96
== END 2018-08-02 15:01 | disposition home or self-care (01) | DRG 389 ==
LOC: ED 19:26 → MS2 21:19
PROVIDERS: Admitting Provider Surgery; Emergency Provider Emergency Medicine; Family Provider Family Medicine; PCP Family Medicine
DX: K56.609 Unspecified intestinal obstruction, unspecified as to partial versus complete obstruction (principal); E87.2 Acidosis; N39.0 Urinary tract infection, site not specified; E78.5 Hyperlipidemia, unspecified; K21.9 Gastro-esophageal reflux disease without esophagitis; I10 Essential (primary) hypertension; Z23 Encounter for immunization
CPT/HCPCS: 36415; 71045; 74018; 74019; 74176; 80048; 80053; 81001; 83605; 83690; 84484; 85025; 87086; 93005; 97802; 99283; J7030; J7040; J7120; 90686; J2405

== ENCOUNTER → 2018-08-11 10:57 | Outpatient (CLI) | payer MEDICARE, SELFPAY | PROVIDERS: Family Provider Family Medicine; PCP Family Medicine; Visit Provider Family Medicine | DX: N39.0 Urinary tract infection, site not specified (principal) | CPT/HCPCS: 87086; 87088 ==

== ENCOUNTER → 2019-01-18 15:39 | Outpatient (CLI) | payer MEDICARE, SELFPAY ==
--- NOTE | 2019-01-18 15:41 | BI_ITS ---
MAMMOGRAPHY - BILATERAL SCREENING REASON FOR EXAM: Female, 73 years old. Routine annual screening examination. PERTINENT HISTORY: Non-contributory. Remote left excisional breast biopsy. TECHNIQUE: Digital bilateral breast sol (3D mammographic acquisition) in the CC and MLO projections. 2-D mediolateral oblique (MLO) and craniocaudad (CC) views of both breasts were obtained. CAD: Full Field Digital Mammography with Computer Added Detection was performed. COMPARISON: Comparison is made with prior study dated January 06, 2018 and October 27, 2016. FINDINGS: Breast Composition: There are scattered areas of fibroglandular density. There are no dominant masses or suspicious calcifications. No other significant abnormalities are identified. There has been no significant change since the prior study. BI/SCREENING MAMM (CAD), BILAT IMPRESSION: Stable bilateral screening mammogram. Yearly follow-up mammogram recommended. (A) ASSESSMENT CATEGORY: BIRADS Category 1: Negative. A letter regarding these results will be sent to the patient by the facility within 30 days. Approximately 10% of breast cancers are not detected by mammography. A normal mammogram should not delay biopsy of a clinically suspicious abnormality. [id number] Electronically Signed: Chuck Smyth, at 8:38 EDT , Service support ,
== END ==
PROVIDERS: Family Provider Family Medicine; PCP Family Medicine; Visit Provider Obstetrics & Gynecology
DX: Z12.31 Encounter for screening mammogram for malignant neoplasm of breast (principal)
CPT/HCPCS: 77063; 77067

== ENCOUNTER → 2019-05-09 11:39 | Outpatient (CLI) | payer MEDICARE, SELFPAY ==
[2019-05-09 15:31] LABS: Absolute Lymphocyte Count 1.28 X10^3/uL (0.83-4.51); Absolute Neutrophil Count 3.3 X10^3/uL (2.0-7.7); Basophil# 0.03 X10^3/uL; Basophil% 0.6 % (0-1); Eosinophil# 0.12 X10^3/uL; Eosinophils% 2.3 % (0-5); Hematocrit 39.7 % (37-47); Hemoglobin 13.5 g/dL (12.0-15.0); Lymphocyte # 1.28 X10^3/ul (4.0); Mean Corpuscular Hgb 31.6 pg (27.0-32.0); Mean Platelet Vol. 10.2 fl (6.2-12.0); Monocyte# 0.35 X10^3/uL; Monocyte% 6.8 % (0-10); NRBC Flagged by Analyzer 0 % (0-5); Neutrophil % 64.7 % (47-70); Platelet Count 228 K/mm3 (150-450); RBC Distribution Width CV 12.9 % (11.6-14.6); RBC Distribution Width SD 43.9 fl (35.1-43.9); Red Blood Count 4.27 M/mm3 (4.2-5.4); White Blood Count 5.1 K/mm3 (4.4-11.0)
[2019-05-09 16:02] LABS: Vitamin D,25 Hydroxy 22.9 ng/mL (29.95-100.01)
[2019-05-09 16:04] LABS: Microalbumin,Random Urine 10.6 mg/L (NO RANGE EST.); Microalbumin:Creatinine Ratio 10.2 mg/g CRE (<30 mg/g CRE)
[2019-05-09 16:07] LABS: ALB/GLOB Ratio 1.2 RATIO (0.9-2.4); AST(SGOT) 20 U/L (15-37); Alanine Aminotransfer ALT/SGPT 41 U/L (13-56); Albumin, Serum 3.7 g/dL (3.2-5.0); Alkaline Phosphatase 80 U/L (45-117); Anion Gap 3 (5-15); BUN 22 mg/dL (7-18); BUN/Creat Ratio 27.7 RATIO (10-20); Calcium,Total 9.1 mg/dL (8.5-10.1); Chloride 108 mmol/L (98-107); Creatinine, Serum 0.79 mg/dL (0.55-1.02); EST Glomerular Filtration Rate 75 mL/min (>60); Est Glom Filt Rate - Afr Amer 91 mL/min (>60); Glucose 134 mg/dL (74-106); Potassium 3.8 mmol/L (3.5-5.1); Protein, Total 6.7 g/dL (6.4-8.2); Sodium Level 139 mmol/L (136-145); Thyroid Stim Hormone (TSH) 1.38 uIU/mL (0.358-3.74)
[2019-05-10 12:53] LABS: Hemoglobin A1c 5.2 % (4.2-6.3)
== END ==
LOC: LAB.FUTURE 11-09 00:41 → BFHLAB 05-08 09:23
PROVIDERS: Family Provider Family Medicine; PCP Family Medicine; Visit Provider Family Medicine
DX: Z00.01 Encounter for general adult medical examination with abnormal findings (principal); I10 Essential (primary) hypertension; E78.5 Hyperlipidemia, unspecified; R73.01 Impaired fasting glucose; E55.9 Vitamin D deficiency, unspecified
CPT/HCPCS: 36415; 80053; 82043; 82306; 82570; 83036; 84443; 85025

== ENCOUNTER → 2020-04-24 12:54 | Outpatient (CLI) | payer MEDICARE, SELFPAY ==
--- NOTE | 2020-04-24 12:57 | BI_ITS ---
MAMMOGRAPHY - BILATERAL SCREENING REASON FOR EXAM: Female, 74 years old. Routine annual screening examination. PERTINENT HISTORY: Non-contributory. Remote left excisional breast biopsy. TECHNIQUE: Digital bilateral breast damir (3D mammographic acquisition) in the CC and MLO projections. 2-D mediolateral oblique (MLO) and craniocaudad (CC) views of both breasts were obtained. CAD: Full Field Digital Mammography with Computer Added Detection was performed. COMPARISON: Comparison is made with prior examination dated January 18, 2019 and January 06, 2018. FINDINGS: Breast Composition: There are scattered areas of fibroglandular density. There are no dominant masses or suspicious calcifications. Stable benign-appearing bilateral axillary lymph nodes. No other significant abnormalities are identified. There has been no significant change since the prior study. BI/SCREEN MAMM (CAD) W/DAMIR BILAT IMPRESSION: Stable bilateral screening mammogram. Yearly follow-up mammogram recommended. (A) ASSESSMENT CATEGORY: BIRADS Category 2: Benign. A letter regarding these results will be sent to the patient by the facility within 30 days. Approximately 10% of breast cancers are not detected by mammography. A normal mammogram should not delay biopsy of a clinically suspicious abnormality. [id number] Electronically Signed: Chuck Smyth, at 15:02 EDT , Service support ,
== END ==
PROVIDERS: PCP Family Medicine; Referring Provider Obstetrics & Gynecology; Visit Provider Obstetrics & Gynecology
DX: Z12.31 Encounter for screening mammogram for malignant neoplasm of breast (principal)
CPT/HCPCS: 77063; 77067

== ENCOUNTER → 2020-05-09 09:28 | Outpatient (CLI) | payer MEDICARE, SELFPAY ==
[2020-05-09 12:42] LABS: Absolute Lymphocyte Count 1.38 X10^3/uL (0.83-4.51); Absolute Neutrophil Count 2.8 X10^3/uL (2.0-7.7); Basophil# 0.03 X10^3/uL; Basophil% 0.6 % (0-1); Eosinophil# 0.15 X10^3/uL; Eosinophils% 3.1 % (0-5); Hemoglobin 12.5 g/dL (12.0-15.0); Lymphocyte # 1.38 X10^3/ul (4.0); Lymphocyte % 28.9 % (19-41); Mean Corp Hgb Conc 32.9 g/dL (32-36); Mean Corpuscular Hgb 30.4 pg (27.0-32.0); Mean Corpuscular Volume 92.5 fL (81-99); Mean Platelet Vol. 9.8 fl (6.2-12.0); Monocyte# 0.38 X10^3/uL; Monocyte% 7.9 % (0-10); NRBC Flagged by Analyzer 0 % (0-5); Neutrophil # 2.83 X10^3/uL (2.7-7.7); Neutrophil % 59.3 % (47-70); Platelet Count 234 K/mm3 (150-450); RBC Distribution Width CV 12.8 % (11.6-14.6); RBC Distribution Width SD 42.5 fl (35.1-43.9); Red Blood Count 4.11 M/mm3 (4.2-5.4); White Blood Count 4.8 K/mm3 (4.4-11.0)
[2020-05-09 12:54] LABS: ALB/GLOB Ratio 1.1 RATIO (0.9-2.4); AST(SGOT) 20 U/L (15-37); Alanine Aminotransfer ALT/SGPT 34 U/L (13-56); Albumin, Serum 3.6 g/dL (3.2-5.0); Alkaline Phosphatase 84 U/L (45-117); Anion Gap 3 (5-15); BUN 18 mg/dL (7-18); BUN/Creat Ratio 24.9 RATIO (10-20); Calcium,Total 8.8 mg/dL (8.5-10.1); Chloride 106 mmol/L (98-107); Cholesterol 214 mg/dL (200); Creatinine, Serum 0.72 mg/dL (0.55-1.02); EST Glomerular Filtration Rate 83 mL/min (>60); Est Glom Filt Rate - Afr Amer 101 mL/min (>60); Globulin 3.2 g/dL (2.2-4.2); Glucose 90 mg/dL (74-106); High Density Lipoprotein 58 mg/dL; Potassium 4.3 mmol/L (3.5-5.1); Protein, Total 6.8 g/dL (6.4-8.2); Sodium Level 139 mmol/L (136-145); Triglycerides 214 mg/dL; Very Low Density Lipoprotein 43 mg/dL (5-40)
[2020-05-09 13:47] LABS: Vitamin D,25 Hydroxy 48.8 ng/mL
== END ==
PROVIDERS: PCP Family Medicine; Visit Provider Family Medicine
DX: I10 Essential (primary) hypertension (principal); E78.5 Hyperlipidemia, unspecified; E55.9 Vitamin D deficiency, unspecified
CPT/HCPCS: 36415; 80053; 80061; 82306; 85025

== ENCOUNTER → 2020-05-16 09:57 | Outpatient (CLI) | payer MEDICARE, SELFPAY ==
--- NOTE | 2020-05-16 10:00 | BD_ITS ---
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 COMPARISON: Comparison is made with prior study dated 05/16/2020. FINDINGS: Lumbar Spine (L1-L4): g/cm2 (1.103) / T-score (-0.6) / Z-score (1.2) Findings are suggestive of normal bone density with a low fracture risk. Increased thoracic kyphosis. Left Femur Total: g/cm2 (0.879) / T-score (-1.0) / Z-score (0.8) Left Femoral Neck: g/cm2 (0.852) / T-score (-1.3) / Z-score (0.7) Right Femur Total: g/cm2 (0.851) / T-score (-1.2) / Z-score (0.6) Right Femoral Neck: g/cm2 (0.756) / T-score (-2.0) / Z-score (0.0) The T-Scores on the most recent prior examination were: Lumbar Spine (L1-L4): There has been worsening of bone density since the previous examination. Left Femur Total: which represents a worsening of 3.8%. Right Femur Total: which represents a worsening of 4.9%. BD/Dexa Bone Density Study IMPRESSION: The patient is considered osteopenic as outlined below according to World Andre Organization (WHO) criteria with a moderate fracture risk. There has been worsening of bone density since the previous examination. Reference Information: The T-score is the number of standard deviations above or below the standard which is normal for young adults at their peak bone mineral density. The World Health Organization (WHO) interprets the T-scores as follows: Above -1 Normal bone density Between -1 and -2.5 Osteopenia Equal to / or below -2.5 Osteoporosis As a practical clinical guideline, osteopenia may be graded as follows: Mild -1 through -1.5 Moderate -1.6 through -2.0 Severe -2.1 through -2.4 The Z-score is the number of standard deviations above or below age-matched controls. A Z-score of less than -1.5 would be considered abnormal. References: 1. NIH Osteoporosis and Related Bone Diseases http://www.osteo.org 2. International Society for Clinical Densitometry http://www.iscd.org 3. National Osteoporosis Foundation http://www.nof.org Electronically Signed: Chuck Smyth, at 15:29 EDT , Service support ,
== END ==
PROVIDERS: PCP Family Medicine; Referring Provider Family Medicine; Visit Provider Family Medicine
DX: Z78.0 Asymptomatic menopausal state (principal); Z13.820 Encounter for screening for osteoporosis; M85.80 Other specified disorders of bone density and structure, unspecified site
CPT/HCPCS: 77080

== ENCOUNTER → 2021-06-03 11:46 | Outpatient (CLI) | payer MEDICARE, SELFPAY | PROVIDERS: PCP Internal Medicine; Referring Provider Internal Medicine; Visit Provider Internal Medicine | DX: R94.31 Abnormal electrocardiogram [ECG] [EKG] (principal) | CPT/HCPCS: 93225; 93226 ==

== ENCOUNTER → 2021-06-07 12:56 | Outpatient (CLI) | payer MEDICARE, SELFPAY ==
--- NOTE | 2021-06-07 12:58 | BI_ITS ---
MAMMOGRAPHY - BILATERAL SCREENING REASON FOR EXAM: Female, 75 years old. Routine annual screening examination. PERTINENT HISTORY: Non-contributory. Remote left excisional breast biopsy. TECHNIQUE: Digital bilateral breast damir (3D mammographic acquisition) in the CC and MLO projections. 2-D mediolateral oblique (MLO) and craniocaudad (CC) views of both breasts were obtained. CAD: Full Field Digital Mammography with Computer Added Detection was performed. COMPARISON: Comparison is made with prior examination dated 04/24/2020 and 01/18/2019. FINDINGS: Breast Composition: There are scattered areas of fibroglandular density. There are no dominant masses or suspicious calcifications. Stable small benign-appearing bilateral axillary lymph nodes. No other significant abnormalities are identified. There has been no significant change since the prior study. BI/SCRN MAMM (CAD)W/DAMIR BILAT IMPRESSION: Stable bilateral screening mammogram. Yearly follow-up mammogram recommended. (A) ASSESSMENT CATEGORY: BIRADS Category 2: Benign. A letter regarding these results will be sent to the patient by the facility within 30 days. Approximately 10% of breast cancers are not detected by mammography. A normal mammogram should not delay biopsy of a clinically suspicious abnormality. [id number] Electronically Signed: Chuck Smyth MD at 13:48 EDT , Service support ,
== END ==
PROVIDERS: PCP Internal Medicine; Referring Provider Internal Medicine; Visit Provider Internal Medicine
DX: Z12.31 Encounter for screening mammogram for malignant neoplasm of breast (principal); M81.0 Age-related osteoporosis without current pathological fracture; R94.31 Abnormal electrocardiogram [ECG] [EKG]
CPT/HCPCS: 77063; 77067

== ENCOUNTER → 2021-07-16 07:08 | Outpatient (CLI) | payer MEDICARE, SELFPAY ==
--- NOTE | 2021-07-16 20:03 | STRESSREP ---
Stress Test Report Date: 07-16-2021 Procedure: Exercise tolerance test/imaging study Indications: PVCs/ventricular ectopy Consent: Per the patient Procedure: The patient exercised on a Carlos Enrique protocol for 6 minutes and 31 seconds completing Stage II and 31 seconds of Stage III achieving a peak heart rate of 121 bpm (85% predicted maximal heart rate) with a peak blood pressure 192/86 mmHg and a peak MET capacity of 8 METs. The baseline ECG demonstrated sinus rhythm. The peak exercise ECG demonstrated no obvious ECG changes. There were occasional PVCs during exercise. The functional capacity was considered good. There was no complaint of chest discomfort during exercise or recovery. The examination was discontinued secondary to dyspnea. Impression: 1. Technically adequate (percent predicted maximal heart rate greater than 85%) exercise tolerance test 2. Peak exercise ECG with no obvious ECG changes 3. There were occasional PVCs during exercise 4. Nuclear images pending Myocardial perfusion imaging study: Technique: The patient was injected with 11.1 mCi of technetium 99m Cardiolite and subsequently rest SPECT Cardiolite nuclear imaging was obtained in the horizontal long, vertical long, and short axis views. The patient exercised on a Carlos Enrique protocol for 6 minutes and 31 seconds completing Stage II and 31 seconds of Stage III achieving a peak heart rate of 121 bpm (85% predicted maximal heart rate) with a peak blood pressure 192/86 mmHg and a peak MET capacity of 8 METs. The patient was injected with 33.3 mCi of technetium 99m Cardiolite and subsequently stress SPECT Cardiolite nuclear imaging was obtained in the horizontal long, vertical long, and short axis views. A gated Cardiolite study at peak stress was obtained. Interpretation: Rest and stress SPECT Cardiolite nuclear imaging status post realignment, normalization, and attenuation correction, demonstrates the appearance of relative uniform tracer uptake and myocardial perfusion appearing within normal limits. There is end systolic thickening and brightening. The gated Cardiolite study demonstrates myocardial thickening and inward wall motion. The reported LVEF is 77%. Impression: 1. Rest and stress SPECT Cardiolite nuclear imaging demonstrate relative uniform tracer uptake and myocardial perfusion appearing within normal limits. 2. The gated Cardiolite study reports an LVEF of 77%. This note was generated with [employer] software. It may contain incorrect words, spelling, and punctuation that were not noted in checking the note before signing.
== END ==
PROVIDERS: PCP Internal Medicine; Referring Provider Internal Medicine; Visit Provider Internal Medicine
DX: I49.3 Ventricular premature depolarization (principal); R06.09 Other forms of dyspnea
CPT/HCPCS: 78452; 93017; A9500; A4216

== ENCOUNTER 2021-11-12 12:45 | Outpatient (CLI) | payer MEDICARE, SELFPAY ==
--- NOTE | 2021-11-12 12:50 | ECHOD_ITS ---
Reason For Study: MURMUR Procedure This was a 2D Doppler, Color Flow transthoracic echocardiogram. The study was technically difficult. Exam performed in department. Left Ventricle Normal LV size. Left ventricular systolic function is normal. The estimated ejection fraction is 65 %. No regional wall motion abnormalities noted. Right Ventricle Normal RV size. Normal systolic function. Atria The left atrium is mildly enlarged. Normal right atrium. No doppler evidence for ASD. Mitral Valve There is no mitral annular calcification. Mild diffuse mitral valve thickening. Moderate (2+) mitral valve insufficiency. Tricuspid Valve Normal tricuspid valve. Trivial tricuspid valve insufficiency. Right ventricular systolic pressure estimated to be 29 mmHg. Aortic Valve Trisinus/trileaflet aortic valve. Mild focal aortic valve thickening. Trivial aortic valve insufficiency. Pulmonic Valve The pulmonic valve is not well visualized. Great Vessels Normal sized aortic root. Pericardium/Pleural No pericardial effusion. MMode/2D Measurements & Calculations LVIDd: 3.4 cm IVSd: 1.1 cm Ao root diam: 3.1 cm LVIDs: 2.5 cm LVPWd: 1.1 cm FS: 28.4 % LAV(MOD-bp): 81.5 ml LVAd ap4: 20.9 cm2 LVAd ap2: 22.8 cm2 LAV(MOD-bp) Indexed: 52.2 ml/m2 LVLd ap4: 6.8 cm LVLd ap2: 7.1 cm LAV(MOD-sp2): 76.0 ml EDV(MOD-sp4): 52.3 ml EDV(MOD-sp2): 59.3 ml LAV(MOD-sp4): 80.0 ml EDV(sp4-el): 54.2 ml EDV(sp2-el): 62.1 ml LVAs ap4: 12.5 cm2 LVAs ap2: 13.5 cm2 LVLs ap4: 5.9 cm LVLs ap2: 6.0 cm ESV(MOD-sp4): 22.4 ml ESV(MOD-sp2): 25.0 ml ESV(sp4-el): 22.7 ml ESV(sp2-el): 25.8 ml EF(MOD-sp4): 57.2 % EF(MOD-sp2): 57.8 % EF(sp4-el): 58.1 % SV(MOD-sp4): 29.9 ml SV(MOD-sp2): 34.2 ml SV(sp4-el): 31.5 ml LA dimension(2D): 4.6 cm LA A4 area: 23.0 cm2 RA A4 area: 11.2 cm2 Doppler Measurements & Calculations MV E max juanjose: 80.9 cm/sec Lat Peak E' Juanjose: 5.4 cm/sec Med Peak E' Juanjose: 5.0 cm/sec MV A max juanjose: 36.3 cm/sec E/E' lat: 14.9 E/E' med: 16.3 MV E/A: 2.2 Ao V2 max: 125.4 cm/sec AI max juanjose: 299.9 cm/sec LV V1 max: 119.4 cm/sec Ao max P.3 mmHg AI max P.0 mmHg LV V1 max P.7 mmHg AI dec slope: 132.9 cm/sec2 AI P1/2t: 660.9 msec PA V2 max: 114.4 cm/sec TR max juanjose: 255.4 cm/sec TR max P.1 mmHg ECHO/Echo Complete Interpretation Summary The study was technically difficult. Left ventricular systolic function is normal. The estimated ejection fraction is 65 %. The left atrium is mildly enlarged. Mild diffuse mitral valve thickening. Moderate (2+) mitral valve insufficiency. Trivial tricuspid valve insufficiency. Mild focal aortic valve thickening. Trivial aortic valve insufficiency. Right ventricular systolic pressure estimated to be 29 mmHg. Transmitral diastolic flow velocities suggest diastolic dysfunction (pseudonorm al pattern). Ordering Physician: Moustapha Frye Referring Physician: BOLIVAR YU Performed By: Yaneth Espinal, RDCS, RVT
--- NOTE | 2021-11-12 12:50 | CDU_ITS ---
Reason For Study: bruit Rt. Velocities/BP Lt. Velocities/BP Prox CCA 79.9/16.0 cm/sec. Prox CCA 91.2/17.6 cm/sec. Mid CCA 77.3/16.0 cm/sec. Mid CCA 82.6/13.9 cm/sec. Dist CCA 78.6/17.3 cm/sec. Dist CCA 81.4/17.6 cm/sec. Prox ICA 72.8/17.6 cm/sec. Prox ICA 80.2/13.9 cm/sec. Mid ICA 91.3/21.2 cm/sec. Mid ICA 92.5/18.8 cm/sec. Dist ICA 114.6/28.6 cm/sec. Dist ICA 71.6/15.5 cm/sec. Rt. ICA/CCA = 1.5. Lt. ICA/CCA = 1.1. Prox ECA 192.5/13.7 cm/sec. Prox ECA 144.8/7.9 cm/sec. Rt. Vert. 56.9/11.4 cm/sec. Lt. Vert. 63.0/13.9 cm/sec. Right Extracranial There is homogeneous, smooth atherosclerotic plaque noted in the right common carotid artery. There is intimal thickening but no significant atherosclerotic plaque noted in the right internal carotid artery. There is heterogeneous, irregular atherosclerotic plaque noted in the right external carotid artery. Antegrade flow is noted in the right vertebral artery. Left Extracranial There is homogeneous, smooth atherosclerotic plaque noted in the left common carotid artery. There is heterogeneous, irregular atherosclerotic plaque noted in the left internal carotid artery. There is heterogeneous, irregular atherosclerotic plaque noted in the left external carotid artery. Antegrade flow is noted in the left vertebral artery. Procedure Carotid Duplex [id number]. This is a Carotid Duplex examination using B-mode, color flow and specral Doppler. The exam was diagnostic. Exam performed in department. VL/Carotid Duplex Ultrasound Interpretation Summary Mild (<50%) stenosis right extracranial internal carotid. Mild (<50%) stenosis left extracranial internal carotid. Flow within the vertebral arteries is antegrade bilaterally. Ordering Physician: Moustapha Frye Performed By: Jeffrey Brown RVT
== END 2021-11-12 23:59 | disposition short-term general hospital (02) ==
LOC: CVS 12:48
PROVIDERS: PCP Internal Medicine; Referring Provider Internal Medicine Cardiovascular Disease; Visit Provider Internal Medicine Cardiovascular Disease
DX: I49.3 Ventricular premature depolarization (principal); R09.89 Other specified symptoms and signs involving the circulatory and respiratory systems; R01.1 Cardiac murmur, unspecified; I10 Essential (primary) hypertension; E78.00 Pure hypercholesterolemia, unspecified
CPT/HCPCS: 93306; 93880

== ENCOUNTER → 2022-06-10 | Outpatient (CLI) | payer MEDICARE, SELFPAY ==
--- NOTE | 2022-06-10 12:53 | BI_ITS ---
MAMMOGRAPHY - BILATERAL SCREENING REASON FOR EXAM: Female, 76 years old. Routine annual screening examination. PERTINENT HISTORY: Non-contributory. Remote left excisional breast biopsy. TECHNIQUE: Digital bilateral breast damir (3D mammographic acquisition) in the CC and MLO projections. 2-D mediolateral oblique (MLO) and craniocaudad (CC) views of both breasts were obtained. CAD: Full Field Digital Mammography with Computer Added Detection was performed. COMPARISON: Comparison is made with prior study 06/07/2021 and 04/24/2020 FINDINGS: Breast Composition: There are scattered areas of fibroglandular density. There are no dominant masses or suspicious calcifications. Stable benign-appearing bilateral axillary lymph nodes. No other significant abnormalities are identified. There has been no significant change since the prior study. BI/SCRN MAMM (CAD)W/DAMIR BILAT IMPRESSION: Stable bilateral screening mammogram. Yearly follow-up mammogram recommended. (A) ASSESSMENT CATEGORY: BIRADS Category 2: Benign. A letter regarding these results will be sent to the patient by the facility within 30 days. Approximately 10% of breast cancers are not detected by mammography. A normal mammogram should not delay biopsy of a clinically suspicious abnormality. [id number] Electronically Signed: Chuck Smyth MD at 13:46 EDT ,
--- NOTE | 2022-06-10 12:58 | BD_ITS ---
STUDY: DUAL ENERGY X-RAY ABSORPTIOMETRY / DXA REASON FOR EXAM: Female, 76 years old. [id number]. Patient is postmenopausal. TECHNIQUE: Bone Mineral Density (BMD) measurements of lumbar spine and bilateral hips were obtained. COMPARISON: Comparison is made with prior study dated 05/16/2020. FINDINGS: Lumbar Spine (L1-L4): g/cm2 (1.034) / T-score (-0.1) / Z-score (2.5) Findings are suggestive of normal bone density with a low fracture risk. Left Femur Total: g/cm2 (0.882) / T-score (-0.5) / Z-score (1.5) Left Femoral Neck: g/cm2 (0.671) / T-score (-1.6) / Z-score (0.7) Right Femur Total: g/cm2 (0.837) / T-score (-0.9) / Z-score (1.1) Right Femoral Neck: g/cm2 (0.580) / T-score (-2.4) / Z-score (-0.2) The T-Scores on the most recent prior examination were: Lumbar Spine (L1-L4): There has been improvement of bone density since the previous examination. Left Femur Total: which represents an improvement of 80%. Right Femur Total: which represents an improvement of 6%. BD/Dexa Bone Density Study IMPRESSION: The patient is considered osteopenic as outlined below according to World Andre Organization (WHO) criteria with a high fracture risk. There has been improvement of bone density since the previous examination. Reference Information: The T-score is the number of standard deviations above or below the standard which is normal for young adults at their peak bone mineral density. The World Health Organization (WHO) interprets the T-scores as follows: Above -1 Normal bone density Between -1 and -2.5 Osteopenia Equal to / or below -2.5 Osteoporosis As a practical clinical guideline, osteopenia may be graded as follows: Mild -1 through -1.5 Moderate -1.6 through -2.0 Severe -2.1 through -2.4 The Z-score is the number of standard deviations above or below age-matched controls. A Z-score of less than -1.5 would be considered abnormal. References: 1. NIH Osteoporosis and Related Bone Diseases www osteo.org 2. International Society for Clinical Densitometry www iscd.org 3. National Osteoporosis Foundation www nof.org Electronically Signed: Chuck Smyth MD at 10:38 EDT ,
== END | disposition home or self-care (01) ==
LOC: OPBD 12:51
PROVIDERS: PCP Internal Medicine; Visit Provider Internal Medicine
DX: Z12.31 Encounter for screening mammogram for malignant neoplasm of breast (principal); M85.80 Other specified disorders of bone density and structure, unspecified site; Z78.0 Asymptomatic menopausal state
CPT/HCPCS: 77063; 77067; 77080

== ENCOUNTER 2022-06-25 14:26 | Outpatient (CLI) | payer MEDICARE, SELFPAY ==
[2022-06-25 14:39] VITALS: BP 205/71; PULSE 74; RESP 18; TEMP 37.2; O2SAT 98; BMI 28.2
[2022-06-25] MEDS: 0.9% Saline Lock 10 ML Syringe IV ×3 (14:51→15:09)
[2022-06-25] MEDS: BEBTELOVIMAB 175 MG/2 ML VIAL IV (15:05)
[2022-06-25 15:29] VITALS: BP 173/71; PULSE 68; RESP 18; TEMP 37.2; O2SAT 97
[2022-06-25 15:47] VITALS: BP 174/68; PULSE 60; RESP 18; TEMP 37.4; O2SAT 96
== END 2022-06-25 16:05 | disposition home or self-care (01) ==
LOC: MS3OUT 14:26 → MS2 14:27
PROVIDERS: PCP Internal Medicine; Referring Provider Nurse Practitioner Acute Care; Visit Provider Nurse Practitioner Acute Care
DX: U07.1 COVID-19 (principal)
CPT/HCPCS: M0222; Q0222; A4216

== ENCOUNTER → 2023-07-01 | Outpatient (CLI) | payer MEDICARE, SELFPAY ==
--- NOTE | 2023-07-01 12:40 | BI_ITS ---
MAMMOGRAPHY - BILATERAL SCREENING REASON FOR EXAM: Female, 78 years old. Routine annual screening examination. PERTINENT HISTORY: Non-contributory. Remote left excisional breast biopsy. TECHNIQUE: Digital bilateral breast damir (3D mammographic acquisition) in the CC and MLO projections. 2-D mediolateral oblique (MLO) and craniocaudad (CC) views of both breasts were obtained. CAD: Full Field Digital Mammography with Computer Added Detection was performed. COMPARISON: Comparison is made with prior study date June 10, 2022 and June 07, 2021. FINDINGS: Breast Composition: There are scattered areas of fibroglandular density. There are no dominant masses or suspicious calcifications. Stable small benign-appearing bilateral axillary lymph nodes. No other significant abnormalities are identified. There has been no significant change since the prior study. BI/SCRN MAMM (CAD)W/DAMIR BILAT IMPRESSION: Stable bilateral screening mammogram. Yearly follow-up mammogram recommended. (A) ASSESSMENT CATEGORY: BIRADS Category 2: Benign. A letter regarding these results will be sent to the patient by the facility within 30 days. Approximately 10% of breast cancers are not detected by mammography. A normal mammogram should not delay biopsy of a clinically suspicious abnormality. [id number] Electronically Signed: Chuck Smyth MD at 14:06 EDT ,
== END | disposition home or self-care (01) ==
LOC: OPBI 12:37
PROVIDERS: PCP Internal Medicine; Referring Provider Internal Medicine; Visit Provider Internal Medicine
DX: Z12.31 Encounter for screening mammogram for malignant neoplasm of breast (principal)
CPT/HCPCS: 77063; 77067

== ENCOUNTER → 2024-08-31 | Outpatient (CLI) | payer MEDICARE, SELFPAY | END | disposition home or self-care (01) | LOC: OPBD 12:24 | PROVIDERS: PCP Internal Medicine; Referring Provider Internal Medicine; Visit Provider Internal Medicine | DX: Z12.31 Encounter for screening mammogram for malignant neoplasm of breast (principal); M81.0 Age-related osteoporosis without current pathological fracture | CPT/HCPCS: 77063; 77067; 77080 ==

== ENCOUNTER → 2024-09-19 | Outpatient (CLI) | payer MEDICARE, SELFPAY | END | disposition home or self-care (01) | PROVIDERS: PCP Internal Medicine; Referring Provider Nurse Practitioner Gerontology; Visit Provider Nurse Practitioner Gerontology | DX: I49.3 Ventricular premature depolarization (principal) | CPT/HCPCS: 93225; 93226 ==

== ENCOUNTER → 2025-05-01 | Outpatient (CLI) | payer MEDICARE, SELFPAY ==
--- NOTE | 2025-05-01 12:52 | ECHOD_ITS ---
Reason For Study Reason For Study: Mitral valve insufficiency Procedure This was a 2D Doppler, Color Flow transthoracic echocardiogram. Exam performed in department. Left Ventricle Normal LV size. Moderate concentric left ventricular hypertrophy. Estimated LVEF 65%. Stage II diastolic dysfunction. Right Ventricle Normal right ventricle. Atria The left atrium is severely enlarged. Normal right atrium. Mitral Valve Mild to moderate predominantly posteriorly directed mitral valve regurgitation. Tricuspid Valve Trivial tricuspid valve insufficiency. Right ventricular systolic pressure estimated to be 43 mmHg. Aortic Valve Trisinus/trileaflet aortic valve. Trivial aortic valve insufficiency. Pulmonic Valve The pulmonic valve is not well visualized. Trivial pulmonic valve insufficiency. Great Vessels Normal sized aortic root. Pericardium/Pleural No pericardial effusion. MMode/2D Measurements & Calculations LVIDd: 3.8 cm IVSd: 1.5 cm Ao root diam: 2.8 cm LVIDs: 2.4 cm LVPWd: 1.2 cm LA dimension: 4.5 cm RVDd: 3.0 cm FS: 35.0 % LAV(MOD-bp): 78.7 ml LVAd ap4: 24.0 cm2 LVAd ap2: 20.1 cm2 LAV(MOD-bp) Indexed: 51.1 ml/m2 LVLd ap4: 7.0 cm LVLd ap2: 6.7 cm LAV(MOD-sp2): 81.7 ml EDV(MOD-sp4): 70.8 ml EDV(MOD-sp2): 50.4 ml LAV(MOD-sp4): 76.6 ml EDV(sp4-el): 70.3 ml EDV(sp2-el): 51.1 ml LVAs ap4: 13.3 cm2 LVAs ap2: 11.5 cm2 LVLs ap4: 6.4 cm LVLs ap2: 6.1 cm ESV(MOD-sp4): 24.9 ml ESV(MOD-sp2): 19.6 ml ESV(sp4-el): 23.4 ml ESV(sp2-el): 18.6 ml EF(MOD-sp4): 64.8 % EF(MOD-sp2): 61.1 % EF(sp4-el): 66.7 % SV(MOD-sp4): 45.9 ml SV(MOD-sp2): 30.8 ml SV(sp4-el): 46.9 ml SI(MOD-sp4): 29.8 ml/m2 SI(MOD-sp2): 20.0 ml/m2 LA A4 area: 22.1 cm2 LA dimension(2D): 4.4 cm RA A4 area: 8.3 cm2 TAPSE: 2.2 cm Time Measurements MV dec time: 0.19 sec Doppler Measurements & Calculations MV E max juanjose: 66.6 cm/sec Lat Peak E' Juanjose: 6.1 cm/sec Med Peak E' Juanjose: 4.7 cm/sec MV A max juanjose: 60.5 cm/sec E/E' lat: 11.0 E/E' med: 14.3 MV E/A: 1.1 Ao V2 max: 141.1 cm/sec AI max juanjose: 338.8 cm/sec MV dec slope: 350.8 cm/sec2 Ao max P.0 mmHg AI max P.0 mmHg Ao V2 mean: 93.8 cm/sec Ao mean P.1 mmHg AI dec slope: 158.4 cm/sec2 Ao V2 VTI: 33.5 cm AI P1/2t: 626.7 msec AV (velocity ratio): 0.87 LV V1 max: 116.3 cm/sec PA V2 max: 123.3 cm/sec TR max juanjose: 305.7 cm/sec LV V1 max P.4 mmHg TR max P.4 mmHg LV V1 mean P.0 mmHg LV V1 mean: 80.9 cm/sec LV V1 VTI: 29.2 cm ECHO/Echo Complete Interpretation Summary Moderate concentric left ventricular hypertrophy. Estimated LVEF 65%. Stage II diastolic dysfunction. The left atrium is severely enlarged. Mild to moderate predominantly posteriorly directed mitral valve regurgitation. Right ventricular systolic pressure estimated to be 43 mmHg. Ordering Physician: Nelida Claire Referring Physician: Olimpia Gonzalez M.D. Performed By: Lucia Smith RDCS
== END | disposition home or self-care (01) ==
LOC: CVS 12:51
PROVIDERS: PCP Internal Medicine; Referring Provider Nurse Practitioner Gerontology; Visit Provider Nurse Practitioner Gerontology
DX: I34.0 Nonrheumatic mitral (valve) insufficiency (principal)
CPT/HCPCS: 93306

== ENCOUNTER → 2025-09-01 | Outpatient (CLI) | payer MEDICARE, SELFPAY ==
--- NOTE | 2025-09-01 12:45 | BI_ITS ---
EXAM: SCRN MAMM (CAD)W/DAMIR BILAT DATE: 09/01/2025 CLINICAL HISTORY: F, Age 80 y/o , SCREENING No family history. Prior left excisional breast biopsy. TECHNIQUE: Procedure Code: [id number] Modality: MG Procedure: SCRN MAMM (CAD)W/DAMIR BILAT COMPARISON: Prior exam(s) dated August 31, 2024.. FINDINGS: TISSUE DENSITY: There are scattered areas of fibroglandular density. Bilateral Breast Mammographic Findings: Questionable focal architectural distortion seen in the deep slightly lateral aspect of the right breast on the craniocaudad view. The patient will be recalled for additional views including compression spot views. BI/SCRN MAMM (CAD)W/DAMIR BILAT IMPRESSION: Questionable focal area of architectural distortion in the slightly lateral asp ect of the right breast on the craniocaudad view. The patient will be recalled for additional views including compression spot vi ews. OVERALL FINAL ASSESSMENT BI-RADS 0: INCOMPLETE - NEED ADDITIONAL IMAGING EVALUATION. RECOMMENDATION: Additional Views obtained/call backs Additional Recommendation none A letter with findings and recommendations will be mailed to the patient. Reading Location: [place] [id number]
== END | disposition home or self-care (01) ==
LOC: OPBI 12:44
PROVIDERS: PCP Internal Medicine; Referring Provider Internal Medicine; Visit Provider Internal Medicine
DX: Z12.31 Encounter for screening mammogram for malignant neoplasm of breast (principal)
CPT/HCPCS: 77063; 77067

== ENCOUNTER → 2025-09-11 | Outpatient (CLI) | payer MEDICARE, SELFPAY ==
--- NOTE | 2025-09-11 12:52 | US_ITS ---
PROCEDURE: BREAST LIMITED UNILATERAL 09/11/2025 REASON FOR EXAM: F, Age 80 y/o , ABN MAMM. Left breast masslike density. Inconclusive mammogram. COMPARISON: Mammogram studies dated 09/11/2025, 09/01/2025 and 07/01/2023.. TECHNIQUE: Procedure Code: [id number] Modality: US Procedure: BREAST LIMITED UNILATERAL FINDINGS: There is a subtle solid hypoechoic mass in the right breast at the 10 o'clock, 7 to 8 o'clock position measuring 7 x 5 x 4 mm. The margins are slightly indistinct. The mass is slightly taller than wide. It does have a small amount of posterior shadowing. It does appear to correlate to the masslike density seen on the mammogram. It appears to represent a probable fibrocystic mass however a short-term six-month follow-up mammogram and ultrasound are recommended to document stability. US/Breast Limited Unilateral IMPRESSION: There is a subtle solid hypoechoic mass in the right breast at the 10 o'clock, 7 to 8 o'clock position measuring 7 x 5 x 4 mm. The margins are slightly indistinct. The mass is slightly taller than wide. It does have a small amount of posterior shadowing. It does appear to correlate to the masslike density seen on the mammogram. It appears to represent a probable fibrocystic mass however a short-term six-month follow-up mammogram and ultrasound are recommend ed to document stability. BI-RADS 3: PROBABLY BENIGN. RECOMMENDATION: 6 Month Follow-up Reading Location: [id number]
--- NOTE | 2025-09-11 12:52 | BI_ITS ---
EXAM: DIAG MAMM W/CAD, UNILAT N/A CLINICAL HISTORY: F, Age 80 y/o , ABN MAMM. Inconclusive screening mammogram showed an area of questionable architectural distortion in the right breast. Evaluate. TECHNIQUE: Procedure Code: [id number] Modality: MG Procedure: DIAG MAMM W/CAD, UNILAT. COMPARISON: Prior exam(s) dated 09/01/2025 and 08/31/2024. FINDINGS: TISSUE DENSITY: There are scattered areas of fibroglandular density. Bilateral Breast Mammographic Findings: The questionable focal area of architectural distortion in the slightly lateral aspect of the right breast on the prior mammogram study does appear to persist on the spot compression CC view and ML view. It is not as well appreciated on the spot compression MLO view. Further workup with ultrasound will be performed for further evaluation. BI/DIAG MAMM W/CAD, UNILAT IMPRESSION: The questionable focal area of architectural distortion in the slightly lateral aspect of the right breast on the prior mammogram study does appear to persist on the spot compression CC view and ML view. It is not as well appreciated on the spot compression MLO view. Further workup with ultrasound will be performed for further evaluat ion. OVERALL FINAL ASSESSMENT BI-RADS 0: INCOMPLETE - NEED ADDITIONAL IMAGING EVALUATION. RECOMMENDATION: Ultrasound Recommended Additional Recommendation none A letter with findings and recommendations will be mailed to the patient. Reading Location: [id number]
== END | disposition home or self-care (01) ==
LOC: OPBI 12:49
PROVIDERS: PCP Internal Medicine; Referring Provider Internal Medicine; Visit Provider Internal Medicine
DX: R92.8 Other abnormal and inconclusive findings on diagnostic imaging of breast (principal)
CPT/HCPCS: 76642; 77061; 77065; G0279